=== PATIENT | female | born 1970 | race Caucasian/White ===

== ENCOUNTER → 2018-05-02 07:30 | Outpatient (CLI) | payer MEDICARE, BC, SELFPAY ==
--- NOTE | 2018-05-02 07:36 | NM_ITS ---
History and Indications: Hypertension, hyperlipidemia, family history, chest pain, shortness of breath, palpitations and fatigue Procedure: Patient received a 0.4 mg of Lexiscan, resting heart rate was 78 bpm resting blood pressure 110/54, with Lexiscan maximum heart rate achieved was 105 bpm just less than 85% of the maximum predicted heart rate and a blood pressure was 101/40. With Lexiscan patient denied any complained of chest pain, complained of malaise and shortness of breath Electrocardiogram: Resting electrocardiogram showed sinus rhythm, with Lexiscan millimeters ST segment depression noted from the baseline EKG. The EKG portion of the Lexiscan Myoview is positive for ischemia. Cardiac stress and resting SPECT images: Cardiac stress and rest SPECT images were obtained using technetium 99 Myoview 30.7 mCi at stress and 10.4 mCi at stress. Gated SPECT further analysis of segmental wall motion and calculation of the ejection fraction also done. Cardiac stress and rest SPECT images show uniform myocardial activity without segmental perfusion abnormality, computer derived ejection fraction is 64% with no regional wall motion abnormality, right ventricle is normal size and contractility. Conclusion: 1. The EKG portion of the Lexiscan Myoview is positive for ischemia. 2. No scintigraphic evidence of reversible ischemia seen, computer derived ejection fraction is 64% with no regional wall motion abnormality, right ventricle is normal size and contractility.
--- NOTE | 2018-05-02 09:45 | HMH.ITSHM ---
amlodipine omeprazole fluoxetine atorvastatin hydrochloroth tecfide vit d3 topiramate oxycod
== END ==
PROVIDERS: Family Provider Family Medicine; PCP Family Medicine; Visit Provider Family Medicine
DX: I20.8 Other forms of angina pectoris (principal); G35 Multiple sclerosis; G89.4 Chronic pain syndrome
CPT/HCPCS: 78452; 93017; A9502; J2785

== ENCOUNTER → 2018-11-06 15:56 | Outpatient (CLI) | payer MEDICARE, BC, SELFPAY ==
[2018-11-06 16:30] LABS: Basophils # 0.1 K/mm3 (0-0.2); Basophils % 0.8 % (0.1-2.0); Eosinophils # 0.1 K/mm3 (0.0-0.4); Eosinophils % 1.5 % (0.1-12.0); Hematocrit 42.1 % (37.0-47.0); Hemoglobin 14.3 g/dL (12.2-16.2); Lymphocytes # 1.7 K/mm3 (0.7-4.5); Lymphocytes % 26.7 % (10-50); Mean Corpuscular HGB Conc 33.9 g/dL (31.8-35.4); Mean Corpuscular Hemoglobin 30.9 pg (27.0-31.2); Mean Corpuscular Volume 91.3 fl (81-99); Mean Platelet Volume 7.4 fl (7.4-10.4); Monocytes # 0.3 K/mm3 (0.1-1.0); Neutrophils # 4.2 K/mm3 (1.8-7.8); Platelet Count 418 K/mm3 (142-424); Red Blood Count 4.61 M/mm3 (4.20-5.40); Red Cell Distribution Width 13.6 % (11.5-17.5); White Blood Count 6.3 K/mm3 (4.8-10.8)
[2018-11-06 19:11] LABS: Alanine Aminotransferase 24 U/L (12-78); Albumin Level 3.8 gm/dL (3.4-5.0); Alkaline Phosphatase 82 U/L (46-116); Aspartate Amino Transferase 17 U/L (15-37); Bilirubin,Direct 0.1 mg/dL (0.0-0.2); Bilirubin,Indirect 0.3 mg/dL (0.0-0.9); Bilirubin,Total 0.4 mg/dL (0.2-1.0); Total Protein,Serum 7.8 gm/dL (6.4-8.2)
== END ==
PROVIDERS: Visit Provider Physician Assistant Medical
DX: R53.83 Other fatigue (principal); G35 Multiple sclerosis
CPT/HCPCS: 36415; 80076; 85025

== ENCOUNTER 2018-12-23 14:07 | Outpatient (CLI) | payer MEDICARE, BC, SELFPAY ==
[2018-12-23 14:49] VITALS: BP 151/83; PULSE 72; RESP 20; TEMP 36.8; O2SAT 96
== END 2018-12-23 15:45 | disposition home or self-care (01) ==
LOC: INF 14:07
PROVIDERS: Visit Provider Family Medicine
DX: G35 Multiple sclerosis (principal)
CPT/HCPCS: 96365

== ENCOUNTER 2018-12-24 14:03 | Outpatient (CLI) | payer MEDICARE, BC, SELFPAY ==
[2018-12-24 14:38] VITALS: BP 141/81; PULSE 77; RESP 20; TEMP 36.8; O2SAT 96
[2018-12-24 15:15] VITALS: BP 118/73; PULSE 70; RESP 20
== END 2018-12-24 15:30 | disposition home or self-care (01) ==
LOC: INF 14:03
PROVIDERS: Visit Provider Family Medicine
DX: G35 Multiple sclerosis (principal)
CPT/HCPCS: 96365

== ENCOUNTER 2018-12-25 13:50 | Outpatient (CLI) | payer MEDICARE, BC, SELFPAY ==
[2018-12-25 14:10] VITALS: BP 130/75; PULSE 78; RESP 18; O2SAT 97
[2018-12-25 15:08] VITALS: BP 128/67; PULSE 74; RESP 20; O2SAT 94
== END 2018-12-25 15:08 | disposition home or self-care (01) ==
LOC: INF 13:58
PROVIDERS: Visit Provider Family Medicine
DX: G35 Multiple sclerosis (principal)
CPT/HCPCS: 96365

== ENCOUNTER 2018-12-26 14:11 | Outpatient (CLI) | payer MEDICARE, BC, SELFPAY ==
[2018-12-26 14:31] VITALS: BP 111/67; PULSE 71; RESP 18; O2SAT 100
[2018-12-26 15:22] VITALS: BP 112/63; PULSE 73; RESP 18; O2SAT 93
== END 2018-12-26 15:22 | disposition home or self-care (01) ==
LOC: INF 14:11
PROVIDERS: Visit Provider Family Medicine
DX: G35 Multiple sclerosis (principal)
CPT/HCPCS: 96365

== ENCOUNTER → 2018-12-27 13:16 | Outpatient (CLI) | payer MEDICARE, BC, SELFPAY ==
[2018-12-27 13:42] VITALS: BP 140/78; PULSE 89; RESP 16; TEMP 37; O2SAT 98; BMI 36.6
[2018-12-27 15:33] VITALS: BP 137/55; PULSE 76; RESP 16; TEMP 36.7; O2SAT 98
== END ==
PROVIDERS: PCP Family Medicine; Visit Provider Family Medicine
DX: G35 Multiple sclerosis (principal)
CPT/HCPCS: 96365

== ENCOUNTER → 2019-08-06 09:43 | Outpatient (CLI) | payer MEDICARE, BC, SELFPAY ==
--- NOTE | 2019-08-06 09:48 | CT_ITS ---
PROCEDURE: CT ABDOMEN PELVIS W CON CLINICAL HISTORY: RT SIDED ABD PAIN,MESENTERIC PANNICULITIS,STEATOHEPATITIS COMPARISON: ABDPELW/O CT ABD PELVIS W/O CONTRAST from 08/13/2012 CT ABDOMEN PELVIS W CON from 07/26/2019 TECHNIQUE: Axial images obtained with sagittal and coronal reformats. All CT scans at the facility use one or more dose reduction, viz: automated exposure control, ma/kV adjustment per patient size (including targeted exams where dose is matched to indication, i.e. head), or iterative reconstruction technique. FINDINGS: Lower lung ursh are clear. There is a clip from cholecystectomy. Liver, pancreas, spleen, and adrenal glands are normal. Left kidney is normal. Right kidney shows a punctate 2 millimeter stone in the mid right kidney without hydronephrosis. There is no hydroureter or ureteral stone. There are some aortic calcified plaques without dilatation. There are still some mesenteric hazy densities however these associated lymph nodes are smaller. GI track is otherwise unremarkable. Appendix is not visualized. Urinary bladder is normal. There is no acute osseous process. IMPRESSION: Nonobstructing right nephrolithiasis is stable. Cholecystectomy and hysterectomy. Mesenteric panniculitis however the lymph nodes are smaller. Dictated by: Rajeev Talley 08/06/2019 11:01 Electronically signed by Rajeev Talley in [facility] 08/06/2019 11:01
== END ==
PROVIDERS: PCP Family Medicine; Visit Provider Family Medicine
DX: K65.4 Sclerosing mesenteritis (principal); K75.81 Nonalcoholic steatohepatitis (NASH); R10.9 Unspecified abdominal pain
CPT/HCPCS: 74177; Q9967

== ENCOUNTER 2020-06-15 17:25 | Emergency (ER) | payer MEDICARE, BC, SELFPAY ==
[2020-06-15 17:35] VITALS: BP 167/104; PULSE 101; RESP 18; TEMP 36.7; O2SAT 98; BMI 38.6
--- NOTE | 2020-06-15 17:40 | CT_ITS ---
PROCEDURE: CT ABDOMEN PELVIS W CON CLINICAL INDICATION: RLQ, LLQ pain Left lower quadrant pain, COMPARISON: CT CT ABDOMEN PELVIS W CON from 08/06/2019 TECHNIQUE: IV Contrast: 75ML Isovue 370 Oral Contrast None Axial images obtained with sagittal and coronal reformats. All CT scans at the facility use one or more dose reduction, viz: automated exposure control, ma/kV adjustment per patient size (including targeted exams where dose is matched to indication, i.e. head), or iterative reconstruction technique. FINDINGS: LOWER THORAX: There is patchy infiltrate in the right lung base medially. Small hiatal hernia noted ABDOMEN & PELVIS: There has been a prior cholecystectomy. There is intra and extrahepatic biliary ductal dilatation slightly more prominent than when compared to the previous exam. The common bile duct measures up to 17 mm superiorly previously measuring 12 mm. No obvious common duct stones evident. The spleen, adrenal glands, and pancreas have an unremarkable appearance. There is a small hiatal hernia. Once again there is noted stranding of the mesenteric fat with scattered small mesenteric lymph nodes similar to the previous exam There is mild prominence of the renal pelvicaliceal system on both sides left greater than right with mild enhancement of the uro epithelium bilaterally slightly more apparent on the right. Nonobstructing 3 mm stone is present in the mid polar region of the right kidney. There is stranding of the Chiqui ureteral fat on both sides. These findings raises suspicion of urinary tract infection. There is a small umbilical hernia which contains fat. There are post hysterectomy changes. Prior appendectomy. No pelvic mass or abnormal fluid collection in the pelvis. No acute bony findings IMPRESSION: 1. Mild prominence of the renal pelvicaliceal system and ureters bilaterally with enhancement of the uro epithelium and stranding of the perinephric and periureteral fat consistent with urinary tract infection. Nonobstructing right renal stone is noted. There is mild left-sided hydronephrosis. UPJ obstruction is considered. 2. Slight increase in degree of intra and extrahepatic bile duct dilatation. Consider MRCP for further evaluation. 3. Stranding of the mesenteric fat with scattered small nodes suggesting chronic mesenteric adenitis/panniculitis 4. Patchy infiltrate in the right lung base Dictated by: Wiley Nelson MD 06/16/2020 06:47 Wiley Nelson MD in [facility] 06/16/2020 06:47
[2020-06-15 17:43] LABS: Microscopic, Urine URINE MICROSCOPIC (MICROSCOPIC)
[2020-06-15 17:46] LABS: Appearance,Urine CLOUDY (Clear); Bilirubin,Urine Negative (Negative); Blood, Urine TRACE-L (Negative); Color,Urine YELLOW (Yellow); Glucose,Urine (UA) TRACE (Negative); Ketones,Urine Negative (Negative); Leukocyte Esterase,Urine 1+ (Negative); Nitrate,Urine Negative (Negative); PH,Urine 7.5 (5.0-8.5); Protein,Urine 3+ (Negative); Specific Gravity, Urine 1.025 (1.005-1.030); Urobilinogen,Urine 0.2 EU/dl (0.2)
--- NOTE | 2020-06-15 17:47 | HMH.EDABDPAI ---
ED Disposition Clinical Impression: Mesenteric adenitis UTI (urinary tract infection) Qualifiers: Urinary tract infection type: acute cystitis Hematuria presence: without hematuria Qualified Code(s): N30.00 - Acute cystitis without hematuria Disposition: Home, Self-Care Condition on Discharge: Good Instructions: DI for Urinary Tract Infection (UTI) Prescriptions: cephALEXin [Keflex 500mg Cap] 500 mg PO BID #14 cap Prescription Printed Referrals: Cachorro Jennings MD [Primary Care Provider] - - Critical Care Critical Care Time: No Attestation: On 06/15/20, the high probability of a clinically significant, sudden or life threatening deterioration of the following system(s) required my full and direct attention, intervention and personal management. The time I documented below is in addition to time spent performing reported procedures but includes the following listed in this critical care notation. Medical Decision Making - Medical Records Medical records reviewed: Yes: I reviewed the patient's medical records. - Jose Inquiry Pt receiving controlled substance: Yes Jose was queried for this patient: No Reason not queried -: Emergent pt cond-no time Risks and benefits of using a controlled substance: were discussed with pt by me Vital Signs: 06/15/20 17:35 06/15/20 17:54 Temperature 98.1 F Temperature Source Oral Pulse Rate [Right Brachial] 101 H 85 Respiratory Rate 18 Blood Pressure [Right Arm] 167/104 H 135/86 Blood Pressure Mean [Right Arm] 125 102 Blood Pressure Source [Right Arm] Automatic Cuff Automatic Cuff Blood Pressure Position [Right Arm] Sitting Sitting 02 Sat by Pulse Oximetry 98 96 Oxygen Delivery Method Room Air Room Air - Lab Data Lab Results 06/15/20 17:32: Urine Color Yellow, Urine Appearance Cloudy, Urine pH 7.5, Ur Specific [place] 1.025, Urine Protein 3+, Urine Glucose (UA) Trace, Urine Ketones Negative, Urine Blood Trace-l, Urine Nitrate Negative, Urine Bilirubin Negative, Urine Urobilinogen 0.2, Ur Leukocyte Esterase 1+ A, Urine RBC 3-5, Urine WBC 20-50, Ur Squamous Epith Cells 3-5, Urine Bacteria 2+ 06/15/20 17:32: Urine HCG, Qual Negative 06/15/20 17:47: WBC 9.5, RBC 4.41, Hgb 13.4, Hct 40.7, MCV 92.2, MCH 30.4, MCHC 33.0, RDW 13.8, Plt Count 441 H, MPV 7.7, Neut % (Auto) 78.6, Lymph % (Auto) 14.8, [place] % (Auto) 5.0, Eos % (Auto) 0.9, Baso % (Auto) 0.7, Neut # (Auto) 7.5, Lymph # (Auto) 1.4, [place] # (Auto) 0.5, Eos # (Auto) 0.1, Baso # (Auto) 0.1 06/15/20 17:47: Sodium 134 L, Potassium 3.3 L, Chloride 97 L, Carbon Dioxide 25, Anion Gap 15.3 H, BUN 11, Creatinine 0.90, Estimated Creat Clear 133, Estimated GFR 66, Est GFR ( Amer) 80, Glucose 160 H, Calcium 9.7, Total Bilirubin 0.5, AST 38 H, ALT 48, Alkaline Phosphatase 151 H, Total Protein 8.4 H, Albumin 4.6, Globulin 3.8 H, Albumin/Globulin Ratio 1.2, Lipase 25 Result diagrams: 06/15/20 17:47 06/15/20 17:47 Orders (Tests/Meds): ED MEDICATIONS Generic Name Dose Route Start Last Admin Trade Name Freq PRN Reason Stop Dose Admin Sodium Chloride 1,000 mls @ 999 mls/hr 06/15/20 17:45 06/15/20 17:49 Sod Chlor 0.9% 1000ml Bag IV 06/15/20 18:45 999 mls/hr .Q1H1M KAYLIE Administration Discontinued Medications Generic Name Dose Route Start Last Admin Trade Name Freq PRN Reason Stop Dose Admin Diphenhydramine HCl 25 mg 06/15/20 17:40 06/15/20 17:49 Diphenhydramine 50mg/Ml Vial IV 06/15/20 17:41 25 mg ONCE ONE Administration Iopamidol 75 ml 06/15/20 18:45 06/15/20 18:47 Iopamidol-370 (76%);100ml Bottle IV 06/15/20 18:46 75 ml ONCE ONE Administration Morphine Sulfate 4 mg 06/15/20 17:40 06/15/20 17:49 Morphine 4mg/Ml Syringe IV 06/15/20 17:41 4 mg ONCE ONE Administration Ondansetron HCl 4 mg 06/15/20 17:40 06/15/20 17:49 Ondansetron 4mg/2ml Vial IV 06/15/20 17:41 4 mg ONCE ONE Administration Sodium Chloride 10 ml 06/15/20 18:45 06/15/20 18:47 Sodium C
[2020-06-15 17:49] LABS: Urine Pregnancy, HCG Qual. Negative (Negative)
[2020-06-15 17:54] VITALS: BP 135/86; PULSE 85; O2SAT 96
[2020-06-15 17:58] LABS: Basophils # 0.1 K/mm3 (0-0.2); Basophils % 0.7 % (0.1-2.0); Eosinophils # 0.1 K/mm3 (0.0-0.4); Eosinophils % 0.9 % (0.1-12.0); Hematocrit 40.7 % (37.0-47.0); Hemoglobin 13.4 g/dL (12.2-16.2); Lymphocytes # 1.4 K/mm3 (0.7-4.5); Lymphocytes % 14.8 % (10-50); Mean Corpuscular Hemoglobin 30.4 pg (27.0-31.2); Mean Corpuscular Volume 92.2 fl (81-99); Mean Platelet Volume 7.7 fl (7.4-10.4); Monocytes # 0.5 K/mm3 (0.1-1.0); Neutrophils # 7.5 K/mm3 (1.8-7.8); Neutrophils % 78.6 % (37.0-80.0); Platelet Count 441 K/mm3 (142-424); Red Blood Count 4.41 M/mm3 (4.20-5.40); Red Cell Distribution Width 13.8 % (11.5-17.5); White Blood Count 9.5 K/mm3 (4.8-10.8)
[2020-06-15 18:00] LABS: Chloride 97 mmol/L (98-107); Potassium 3.3 mmoL/L (3.5-5.1); Sodium 134 mmol/L (136-145)
[2020-06-15 18:02] LABS: Alanine Aminotransferase 48 U/L (12-78); Aspartate Amino Transferase 38 U/L (14-36); Blood Urea Nitrogen 11 mg/dl (7-17); Creatinine Clearance Estimated 133 mL/min (50-200); Estimated Glomerular Filt Rate 66 ml/min (>60); GFR (African American) 80 ML/MIN (>60)
[2020-06-15 18:03] LABS: Albumin Level 4.6 g/dl (3.5-5.0); Albumin/Globulin Ratio 1.2 (1.1-1.8); Alkaline Phosphatase 151 U/L (38-126); Anion Gap 15.3 mEq/L (5-15); Bilirubin,Total 0.5 mg/dl (0.2-1.3); Calcium 9.7 mg/dl (8.4-10.2); Carbon Dioxide 25 mmol/L (22.0-30.0); Globulin 3.8 g/dL (1.3-3.2); Glucose 160 mg/dl (74-100); Lipase 25 U/L (23-300); Total Protein,Serum 8.4 g/dl (6.3-8.2)
--- NOTE | 2020-06-15 18:23 | PC.NURSE ---
PATIENT GONE TO CT AT THIS TIME
[2020-06-15 18:37] LABS: Bacteria,Urine 2+ /lpf; WBC,Urine 20-50 #/hpf (0-3)
--- NOTE | 2020-06-15 19:16 | PC.NURSE ---
received report from day nurse at this time.
[2020-06-15 20:35] VITALS: BP 137/84; PULSE 76; RESP 14; TEMP 36.7; O2SAT 98
== END 2020-06-15 20:37 | disposition home or self-care (01) ==
PROVIDERS: Emergency Provider Emergency Medicine; PCP Family Medicine
DX: I88.0 Nonspecific mesenteric lymphadenitis (principal); N30.00 Acute cystitis without hematuria; B96.20 Unspecified Escherichia coli [E. coli] as the cause of diseases classified elsewhere; G35 Multiple sclerosis
CPT/HCPCS: 74177; 80053; 81001; 81025; 83690; 85025; 87086; 87088; 87186; 96365; 96375; 96376; 99283; J2405; Q9967

== ENCOUNTER → 2021-09-10 11:00 | Outpatient (CLI) | payer MEDICARE, BC, SELFPAY | PROVIDERS: Visit Provider Nurse Practitioner | DX: U07.1 COVID-19 (principal) | CPT/HCPCS: C9803; U0003; U0005 ==

== ENCOUNTER → 2021-11-29 15:49 | Outpatient (CLI) | payer MEDICARE, BC, SELFPAY ==
--- NOTE | 2021-11-29 15:52 | MM_ITS ---
PROCEDURE INFORMATION: Exam: MG Bilateral Screening 3D Mammography Exam date and time: 11/29/2021 3:55 PM Age: 51 years old Clinical indication: Screening examination TECHNIQUE: Imaging protocol: Bilateral Screening tomosynthesis and 2D mammography including computer-aided detection (CAD) when performed. COMPARISON: 1. MG DMSB DIG MAMM-SCREEN PRIETO W/CAD 07/08/2017 4:05 PM 2. MG DMSB DIG MAMM-SCREEN PRIETO 06/26/2016 10:23 AM FINDINGS: MAMMOGRAPHY: Breast composition: The breast tissue is composed of scattered areas of fibroglandular density. Mass: 0.8 cm mass in the middle third of the left outer quadrant seen on craniocaudal image 1373, frame 39 Architectural distortion: None. Calcifications: No suspicious calcifications. Asymmetric density: None. Skin thickening: None. Axillary adenopathy: None. IMPRESSION: Patient to be recalled for left breast ultrasound for further evaluation of a left breast mass. ASSESSMENT: BI-RADS Category 0: Incomplete- Need Additional Imaging Evaluation and/or Prior Mammograms for Comparison
== END ==
PROVIDERS: Visit Provider Obstetrics & Gynecology Gynecology
DX: Z12.31 Encounter for screening mammogram for malignant neoplasm of breast (principal)
CPT/HCPCS: 77063; 77067

== ENCOUNTER → 2021-12-13 13:27 | Outpatient (CLI) | payer MEDICARE, BC, SELFPAY ==
--- NOTE | 2021-12-13 13:32 | US_ITS ---
PROCEDURE INFORMATION: Exam: US Left Breast, Complete Exam date and time: 12/13/2021 1:41 PM Age: 51 years old Clinical indication: Recall on the basis of screening mammogram 11/29/2021 for sonographic evaluation of 0.8 cm mass in the middle 3rd of the left outer quadrant. TECHNIQUE: Imaging protocol: Complete ultrasound of all four quadrants of the Left breast and the retroareolar regions, including ultrasound of the axilla when performed. COMPARISON: MG MM DIG SCREENING MAMM BI W/CAD 11/29/2021 3:55 PM FINDINGS: Breast: Left sonography, all 4 quadrants, retroareolar and axilla demonstrate, at 2 o'clock 8 cm from the nipple, mildly lobulated hypoechoic mass, measuring 0.8 x 0.5 x 0.7 cm, more could be a complex cyst or solid, and corresponds to the mammographic nodule. No other cystic or solid masses demonstrated. Sonographically unremarkable left axillary lymph node. IMPRESSION: Suggest ultrasound-guided biopsy of 0.8 cm mass in the left breast at 2 o'clock, checking for correlation of ultrasound placed clip with mammographic nodule. ASSESSMENT: BI-RADS Category 4: Suspicious
== END ==
PROVIDERS: Visit Provider Obstetrics & Gynecology Gynecology
DX: R92.8 Other abnormal and inconclusive findings on diagnostic imaging of breast (principal)
CPT/HCPCS: 76641

== ENCOUNTER → 2021-12-19 09:42 | Outpatient (CLI) | payer MEDICARE, BC, SELFPAY ==
--- NOTE | 2021-12-19 09:54 | US_ITS ---
FINAL REPORT CLINICAL HISTORY: ABN MAMM; left breast nodule, 8 mm, at 2:00; mammotome FINDINGS: ULTRASOUND-GUIDED LEFT BREAST CORE BIOPSY TECHNIQUE: Limited images were obtained to localize region of interest. The left was prepped in a routine sterile fashion and locally anesthetized with 1% lidocaine. Standard written informed consent was obtained. An 11-gauge vacuum assisted hand-held device was utilized. The needle was positioned posterior to the lesion in the upper outer quadrant at 2:00 measuring approximately 7 mm.. Multiple vacuum assisted core samples were obtained. The lesion was noted to be significantly smaller following biopsy. A biopsy marker clip was deployed in satisfactory position. Postbiopsy mammogram showed postbiopsy changes with clip in satisfactory position. Procedure was well tolerated . CONCLUSION: 1. Technically successful ultrasound guided core vacuum assisted biopsy of left breast lesion as above. 2. Biopsy marker clip deployed Authenticated by Esperanza Ellington MD on 12/20/2021 08:50:06 PM [facility]
--- NOTE | 2021-12-19 09:57 | MM_ITS ---
FINAL REPORT CLINICAL HISTORY: lt clip placement FINDINGS: MAMMOGRAM LEFT TECHNIQUE: Standard digital 2-D views COMPARISON: None DENSITY: There are scattered areas of fibroglandular density FINDINGS: Post biopsy marker clip is noted to be in satisfactory position in the left upper outer quadrant. Postbiopsy changes are noted. IMPRESSION: Biopsy marker clip in good position RECOMMENDATION: Pending histopathology evaluation. If histopathology results are benign, recommend short-term mammographic and sonographic follow-up of the left breast in 6 months as part of routine postbiopsy surveillance Authenticated by Esperanza Ellington MD on 12/25/2021 10:22:14 PM [facility]
== END ==
PROVIDERS: Visit Provider Obstetrics & Gynecology Gynecology
DX: R92.8 Other abnormal and inconclusive findings on diagnostic imaging of breast (principal)
CPT/HCPCS: 19083; 77065; 88305; C2618

== ENCOUNTER 2021-12-21 17:06 | Emergency (ER) | payer MEDICARE, BC, SELFPAY ==
[2021-12-21 17:09] VITALS: BP 130/85; PULSE 70; RESP 16; TEMP 36.6; O2SAT 97; BMI 36.8
--- NOTE | 2021-12-21 18:31 | HMH.EDSKAF ---
ED Disposition Clinical Impression: Contact dermatitis Qualifiers: Contact dermatitis type: irritant Contact dermatitis trigger: other chemical product Qualified Code(s): L24.5 - Irritant contact dermatitis due to other chemical products Disposition: Home, Self-Care Condition on Discharge: Good Instructions: DI for Contact Dermatitis Prescriptions: Hydrocortisone [Hydrocortisone 1% Cream 30gm Tube] 1 applic TP TID #30 gm Transmission Status: Pending to [facility] Referrals: Cachorro Jennings MD [Primary Care Provider] - - Critical Care Critical Care Time: No Attestation: On 12/21/21, the high probability of a clinically significant, sudden or life threatening deterioration of the following system(s) required my full and direct attention, intervention and personal management. The time I documented below is in addition to time spent performing reported procedures but includes the following listed in this critical care notation. Medical Decision Making - Medical Records Medical records reviewed: Yes: I reviewed the patient's medical records. - Jose Inquiry Pt receiving controlled substance: No Vital Signs: 12/21/21 17:09 Temperature 97.8 F Temperature Source Oral Pulse Rate [Right Radial] 70 Respiratory Rate 16 Blood Pressure [Right Arm] 130/85 Blood Pressure Mean [Right Arm] 100 Blood Pressure Source [Right Arm] Automatic Cuff Blood Pressure Position [Right Arm] Sitting 02 Sat by Pulse Oximetry 97 Oxygen Delivery Method Room Air Medical Decision Narrative: 51-year-old female presented to the emergency department with a lesion on her left breast. Patient had recent biopsy and had tape bandages over the wound. I do believe the patient's symptoms are consistent with an abrasion from tape removal as well as allergic reaction. There is no evidence of cellulitis or other systemic infection. No evidence anaphylaxis. Patient be placed on topical steroid. Needs to follow-up with PCP in 48 hours. Given strict return precautions. Verbalized understanding. Skin/Abscess/FB HPI - General Chief complaint: Skin/Abscess/Foreign Body Stated complaint: L breast biopsy,irritation around bandage Time Seen by Provider: 12/21/21 17:15 Mode of Arrival: Ambulatory Limitations: No Limitations Description of Symptoms (Recalled from ER Triage Doc. by RN): Pt reports possibly allergic reaction from dressing she had on her L breast from a biopsy that she had done of saturday of this week. Pt reports began having itching/buring from area on top of her breast that is red and irritated yesterday. - History of Present Illness HPI narrative: Is a 51-year-old female presented to the emergency department with a rash on the left breast. The patient had a biopsy done 2 days ago without any significant complications. She had some tape placed on her breast. She removed it yesterday and started noticing some irritation underneath where the tape was. Small red area that has been burning and itching. Had some clear drainage. There is been no discharge or bleeding from the nipple. No other issues or injuries. She states that they used a silk tape to place over the area. Patient is not having any fevers or chills. No headache or change in vision. No focal weakness. No chest pain or shortness of breath. No Abdominal pain or vomiting. - Related Data Home Medications Medication Instructions Recorded Confirmed amlodipine 10 mg-benazepril 40 mg 1 cap PO DAILY cap 08/14/21 08/14/21 capsule atorvastatin 10 mg tablet 10 mg PO DAILY tab 08/14/21 08/14/21 omeprazole 20 mg capsule,delayed 20 mg PO DAILY cap 08/14/21 08/14/21 release oxycodone-acetaminophen 10 mg-325 1 tab PO ONCE PRN tab 08/14/21 08/14/21 mg tablet Previous Rx's Medication Instructions Recorded alprazolam 0.25 mg tablet 0.25 mg PO BID PRN #30 tab 11/29/21 buspirone 10 mg tablet 10 mg PO BID #60 tab 11/29/21 fluoxetine 40 mg capsule
[2021-12-21 19:26] VITALS: BP 134/77; PULSE 81; RESP 18; TEMP 36.9; O2SAT 99
== END 2021-12-21 19:28 | disposition home or self-care (01) ==
PROVIDERS: Emergency Provider Emergency Medicine; PCP Family Medicine
DX: L24.5 Irritant contact dermatitis due to other chemical products (principal); R21 Rash and other nonspecific skin eruption; N64.9 Disorder of breast, unspecified; Z82.49 Family history of ischemic heart disease and other diseases of the circulatory system; Z80.9 Family history of malignant neoplasm, unspecified; Z83.3 Family history of diabetes mellitus
CPT/HCPCS: 99283

== ENCOUNTER 2022-07-14 12:15 | Emergency (ER) | payer MEDICARE, BC, SELFPAY ==
--- NOTE | 2022-07-14 14:41 | EXP.UTC ---
Discharge Plan Disposition Patient Disposition: Home, Self-Care Condition: Good Prescriptions Prescriptions: New promethazine-DM 6.25-15 mg/5 mL Syrup 5 ml PO Q6H PRN (Reason: Cough) Qty: 240 0RF azithromycin [Zithromax] 250 mg tablet 250 mg PO UD DOSE PK Qty: 6 0RF Rx Instructions: Take two (2) tablets today, then one (1) tablet days #2 thru #5 methylprednisolone 4 mg Tablets,Dose Pack 4 mg PO DIRECTED Qty: 21 0RF guaifenesin [Mucinex] 600 mg tablet extended release 12hr 600 - 1,200 mg PO BIDP PRN (Reason: Congestion) Qty: 30 0RF No Action alprazolam [Xanax] 0.25 mg tablet 0.25 mg PO BID PRN (Reason: anxiety) Qty: 30 0RF buspirone 10 mg tablet 10 mg PO BID Qty: 60 1RF fluoxetine [Prozac] 40 mg capsule 80 mg PO DAILY Qty: 60 1RF hydroxyzine pamoate [Vistaril] 25 mg capsule 25 mg PO QHS PRN (Reason: for sleep) Qty: 30 1RF quetiapine [Seroquel] 50 mg tablet 50 mg PO QHS Qty: 30 1RF venlafaxine [Effexor XR] 75 mg capsule,extended release 24hr 75 mg PO DAILY Qty: 30 1RF oxycodone-acetaminophen 10-325 mg tablet 1 tab PO ONCE PRN amlodipine-benazepril 10-40 mg capsule 1 cap PO DAILY omeprazole 20 mg capsule,delayed release(DR/EC) 20 mg PO DAILY atorvastatin 10 mg tablet 10 mg PO DAILY hydrocortisone 28.4 GM cream 1 applic TP TID Qty: 30 0RF Referrals Follow up/Referrals: Cachorro Jennings MD [Primary Care Provider] - See instructions Activity Restrictions/Add. Instructions Additional Instructions/Restrictions: Drink plenty of fluids. Take tylenol or ibuprofen for pain or fever. Take the medications as directed. Follow up with your regular doctor. GO TO THE ER FOR ANY WORSENING SYMPTOMS Don't start the oral steroids until tomorrow, since you had the shot here today. Clinical Impressions Clinical Impression: Sinusitis Instructions Patient Instructions: Sinusitis Discharge ED Provider: Mandeep Betancourt [facility] [place] HPI General Stated complaint: Cough,Congestion Time Seen by Provider: 07/14/22 14:41 History of Present Illness Provider Complaint: She has had sinus congestion, fever, sore throat and she has felt bad for the past 5 days. Related Data Home Medications Medication Instructions Recorded Confirmed amlodipine 10 mg-benazepril 40 mg 1 cap PO DAILY 08/14/21 07/03/22 capsule atorvastatin 10 mg tablet 10 mg PO DAILY 08/14/21 07/03/22 omeprazole 20 mg capsule,delayed 20 mg PO DAILY 08/14/21 07/03/22 release oxycodone-acetaminophen 10 mg-325 1 tab PO ONCE PRN 08/14/21 07/03/22 mg tablet Previous Rx's Medication Instructions Recorded hydrocortisone 1 % topical cream 1 applic topical TID #30 grams 12/21/21 alprazolam 0.25 mg tablet (Xanax) 0.25 mg PO BID PRN anxiety #30 tabs 04/25/22 buspirone 10 mg tablet 10 mg PO BID #60 tabs 06/21/22 fluoxetine 40 mg capsule (Prozac) 80 mg PO DAILY #60 caps 06/21/22 hydroxyzine pamoate 25 mg capsule 25 mg PO QHS PRN for sleep #30 caps 06/21/22 (Vistaril) quetiapine 50 mg tablet (Seroquel) 50 mg PO QHS #30 tabs 06/21/22 venlafaxine 75 mg capsule,extended 75 mg PO DAILY #30 caps 06/21/22 release 24 hr (Effexor XR) azithromycin 250 mg tablet 250 mg PO UD DOSE PK #6 tabs 07/14/22 (Zithromax) guaifenesin 600 mg tablet, 600 - 1,200 mg PO BIDP PRN 07/14/22 extended release 12 hr (Mucinex) Congestion #30 tabs methylprednisolone 4 mg tablets in 4 mg PO DIRECTED #21 tabs 07/14/22 a dose pack promethazine-DM 6.25 mg-15 mg/5 mL 5 ml PO Q6H PRN Cough #240 mL 07/14/22 oral syrup Allergies Allergy/AdvReac Type Severity Reaction Status Date / Time No Known Allergies Allergy Verified 07/14/22 15:06 [facility] Disclaimer: The information contained in this section may have been updated after the patient was seen, as this information can be updated by other users. Medical History G
[2022-07-14 14:46] VITALS: BP 125/69; PULSE 83; RESP 16; TEMP 36.7; O2SAT 96; BMI 36.5
[2022-07-14 15:43] VITALS: BP 125/69; PULSE 83; RESP 16; TEMP 36.7
[2022-07-14 15:53] LABS: Adenovirus,PCR Not Detected (NotDetected); Bordetella Pertussis Not Detected (NotDetected); Chlamydophila Pneumoniae, PCR Not Detected (NotDetected); Coronavirus 19, PCR Not Detected (NotDetected); Coronavirus 229E Not Detected (NotDetected); Coronavirus NL63 Not Detected (NotDetected); Coronavirus OC43 Not Detected (NotDetected); Coronovirus HKU1,PCR Not Detected (NotDetected); Human Metapneumovirus Not Detected (NotDetected); Influenza A, PCR Not Detected (NotDetected); Influenza AH1, 2009 Not Detected (NotDetected); Influenza AH1, PCR Not Detected (NotDetected); Influenza AH3,PCR Not Detected (NotDetected); Influenza B, PCR Not Detected (NotDetected); Mycoplasma Pneumoniae, PCR Not Detected (NotDetected); Parainfluenza 1, PCR Not Detected (NotDetected); Parainfluenza 2, PCR Not Detected (NotDetected); Parainfluenza 3, PCR Not Detected (NotDetected); Parainfluenza 4, PCR Not Detected (NotDetected); Respiratory Syncytial Virus Not Detected (NotDetected); Rhinovirus/Enterovirus Not Detected (NotDetected)
== END 2022-07-14 15:48 | disposition home or self-care (01) ==
PROVIDERS: Emergency Provider Nurse Practitioner Family; PCP Family Medicine
DX: J02.9 Acute pharyngitis, unspecified (principal); R50.9 Fever, unspecified; Z20.822 Contact with and (suspected) exposure to COVID-19; G47.00 Insomnia, unspecified; F41.1 Generalized anxiety disorder; Z79.1 Long term (current) use of non-steroidal anti-inflammatories (NSAID); Z79.52 Long term (current) use of systemic steroids; Z79.899 Other long term (current) drug therapy
CPT/HCPCS: 87581; 87632; 87798; 96372; 99213; C9803; G0463; J0696; U0003; U0005

== ENCOUNTER 2022-07-31 11:56 | Emergency (ER) | payer MEDICARE, BC, SELFPAY ==
[2022-07-31 12:50] VITALS: BP 121/84; PULSE 86; RESP 19; TEMP 36.8; O2SAT 97; BMI 38.5
--- NOTE | 2022-07-31 13:11 | EXP.UTC ---
Discharge Plan Disposition Patient Disposition: Home, Self-Care Condition: Good Prescriptions Prescriptions: New doxycycline hyclate 100 mg capsule 100 mg PO BID 7 Days Qty: 14 0RF No Action oxycodone-acetaminophen 10-325 mg tablet 1 tab PO ONCE PRN amlodipine-benazepril 10-40 mg capsule 1 cap PO DAILY omeprazole 20 mg capsule,delayed release(DR/EC) 20 mg PO DAILY atorvastatin 10 mg tablet 10 mg PO DAILY venlafaxine [Effexor XR] 75 mg capsule,extended release 24hr 75 mg PO DAILY Qty: 30 1RF quetiapine [Seroquel] 50 mg tablet 50 mg PO QHS Qty: 30 1RF hydroxyzine pamoate [Vistaril] 25 mg capsule 25 mg PO QHS PRN (Reason: for sleep) Qty: 30 1RF fluoxetine [Prozac] 40 mg capsule 80 mg PO DAILY Qty: 60 1RF buspirone 10 mg tablet 10 mg PO BID Qty: 60 1RF alprazolam [Xanax] 0.25 mg tablet 0.25 mg PO BID PRN (Reason: anxiety) Qty: 30 0RF promethazine-DM 6.25-15 mg/5 mL Syrup 5 ml PO Q6H PRN (Reason: Cough) Qty: 240 0RF azithromycin [Zithromax] 250 mg tablet 250 mg PO UD DOSE PK Qty: 6 0RF Rx Instructions: Take two (2) tablets today, then one (1) tablet days #2 thru #5 methylprednisolone 4 mg Tablets,Dose Pack 4 mg PO DIRECTED Qty: 21 0RF guaifenesin [Mucinex] 600 mg tablet extended release 12hr 600 - 1,200 mg PO BIDP PRN (Reason: Congestion) Qty: 30 0RF hydrocortisone 28.4 GM cream 1 applic TP TID Qty: 30 0RF Referrals Follow up/Referrals: Cachorro Jennings MD [Primary Care Provider] - See instructions Activity Restrictions/Add. Instructions Additional Instructions/Restrictions: *Monitor Temp, Over the counter Motrin or Tylenol as directed/as needed Tylenol every 4 hours and Motrin every 6 hours (as long as your family doctor has told you that you can take it) for fever or pain. and straight to ER if unable to lower temp less than 101.0 after medication given *Warm salt water gargles may help to soothe the throat *Throat Lozenges? *Warm fluids like tea with honey may help to soothe the throat? *Sleep elevated *Humidifier/Vaporizer *Flonase 2 sprays in each nostril daily but be aware that it may take 2-3 days before you notice improvement *Bromfed may cause drowsiness. Know how it effects you (your child) before driving, caring for small child, or sending your child to school. Not other antihistamines/allergy medications while taking bromfed Your throat swab was sent for culture. Those results are typically sent to your primary care. Be sure to follow up in 2-3 days with your family doctor/primary care physician if no improvement so they can review those result and treat if necessary. If you don?t have a primary care doctor, I recommend you get one but in the mean time, you will have to return to a walk in clinic Follow up IMMEDIATELY for new or worsening symptoms or no Noticeable improvement over the next 48-72 hours. 911 for difficulty breathing or swallowing You were tested for today for COVID19 your test result should be back in the next 24-48 hours, you may check your results on the [facility] Portal Clinical Impressions Clinical Impression: Sinusitis Qualifiers: Sinusitis location: unspecified location Chronicity: unspecified Qualified Code(s): J32.9 - Chronic sinusitis, unspecified Instructions Patient Instructions: Sinusitis, DI for Sinusitis [place] ED [place] [facility] [place] [facility] [place] General Stated complaint: Congestion ear pain headache cough Mode of Arrival: Ambulatory Source of Information: Patient Limitations: No Limitations Time Seen by Provider: 07/31/22 13:11 Description of Symptoms (Recalled from Triage Doc. by RN): PATIENT C/O COUGH, HEADACHE AND SINUS PRESSURE X 4 DAYS HEENT Symptoms (Recalled from RN notes): Yes Resp Symptoms (Recalled from RN notes): Yes Skin Symptoms (Recalled from RN notes): No MS Symptoms (Recalled from RN notes): No Functional Status (
[2022-07-31 13:30] VITALS: BP 121/84; PULSE 86; RESP 19; TEMP 36.8; O2SAT 97
== END 2022-07-31 13:34 | disposition home or self-care (01) ==
PROVIDERS: Emergency Provider Nurse Practitioner; PCP Family Medicine
DX: J32.9 Chronic sinusitis, unspecified (principal)
CPT/HCPCS: 99212; C9803; G0463; U0003; U0005

== ENCOUNTER 2022-10-05 13:29 | Emergency (ER) | payer MEDICARE, BC, SELFPAY ==
[2022-10-05 13:35] VITALS: BP 123/80; PULSE 85; RESP 20; TEMP 36.7; O2SAT 96; BMI 36.1
--- NOTE | 2022-10-05 13:46 | EXP.UTC ---
Discharge Plan Disposition Patient Disposition: Home, Self-Care Condition: Good Prescriptions Prescriptions: New azithromycin [Zithromax] 250 mg tablet 250 mg PO UD DOSE PK Qty: 6 0RF Rx Instructions: Take two (2) tablets today, then one (1) tablet days #2 thru #5 ofloxacin 0.3 % drops See Rx Instructions .ROUTE .COMPLEX Qty: 5 0RF Rx Instructions: put 2 drps into the right eye every 2 h x 2 days, then 1 drp 4 times/day days 3-7 benzonatate [benzonatate] 100 mg capsule 100 mg PO TIDP PRN (Reason: Cough) Qty: 30 0RF methylprednisolone 4 mg Tablets,Dose Pack 4 mg PO DIRECTED Qty: 21 0RF No Action oxycodone-acetaminophen 10-325 mg tablet 1 tab PO ONCE PRN (Reason: .) amlodipine-benazepril 10-40 mg capsule 1 cap PO DAILY omeprazole 20 mg capsule,delayed release(DR/EC) 20 mg PO DAILY atorvastatin 10 mg tablet 10 mg PO DAILY alprazolam [Xanax] 0.25 mg tablet 0.25 mg PO BID PRN (Reason: anxiety) Qty: 30 0RF hydroxyzine pamoate [Vistaril] 25 mg capsule 25 mg PO QHS PRN (Reason: for sleep) Qty: 30 1RF hydrocortisone 28.4 GM cream 1 applic TP TID Qty: 30 0RF hydrochlorothiazide 25 mg tablet 25 mg PO DAILY Label Comments: TAKE 1 TABLET BY MOUTH EVERY DAY fluoxetine [Prozac] 40 mg capsule 80 mg PO DAILY venlafaxine [Effexor XR] 75 mg capsule,extended release 24hr 75 mg PO DAILY buspirone 10 mg tablet 10 mg PO BID quetiapine [Seroquel] 50 mg tablet 50 mg PO QHS Referrals Follow up/Referrals: Cachorro Jennings MD [Primary Care Provider] - See instructions Activity Restrictions/Add. Instructions Additional Instructions/Restrictions: Use the eye drops as directed. Follow up with your regular doctor. Drink plenty of fluids. Take tylenol or ibuprofen for pain or fever. Take the medications as directed. Follow up with your regular doctor. GO TO THE ER FOR ANY WORSENING SYMPTOMS Clinical Impressions Clinical Impression: Conjunctivitis of right eye, Sinusitis Instructions Patient Instructions: How to Instill Eye Drops, DI for Sinusitis, DI for Conjunctivitis Discharge ED Provider: Mandeep Betancourt [facility] General Stated complaint: Eye redness w/drainage Mode of Arrival: Ambulatory Source of Information: Patient Limitations: No Limitations Time Seen by Provider: 10/05/22 14:07 Description of Symptoms (Recalled from Triage Doc. by RN): pinkeye in right eye and sinus infection HEENT Symptoms (Recalled from RN notes): Yes Resp Symptoms (Recalled from RN notes): No Skin Symptoms (Recalled from RN notes): No MS Symptoms (Recalled from RN notes): No Functional Status (Recalled from RN notes): n/a History of Present Illness Provider Complaint: She states that since yesterday she has had right eye irritation, eyelid puffiness, and yellowish discharge. She denies any eye injury or foreign body. She has been with her grand children and they currently have pink eye. She also has had sinus congestion, sore throat, and a cough. Related Data Home Medications Medication Instructions Recorded Confirmed amlodipine 10 mg-benazepril 40 mg 1 cap PO DAILY . 08/14/21 10/05/22 capsule atorvastatin 10 mg tablet 10 mg PO DAILY . 08/14/21 10/05/22 omeprazole 20 mg capsule,delayed 20 mg PO DAILY . 08/14/21 10/05/22 release oxycodone-acetaminophen 10 mg-325 1 tab PO ONCE PRN . 08/14/21 10/05/22 mg tablet buspirone 10 mg tablet 10 mg PO BID . 10/05/22 10/05/22 fluoxetine 40 mg capsule (Prozac) 80 mg PO DAILY . 10/05/22 10/05/22 hydrochlorothiazide 25 mg tablet 25 mg PO DAILY . 10/05/22 10/05/22 quetiapine 50 mg tablet (Seroquel) 50 mg PO QHS . 10/05/22 10/05/22 venlafaxine 75 mg capsule,extended 75 mg PO DAILY . 10/05/22 10/05/22 release 24 hr (Effexor XR) Previous Rx's Medication Instructions Recorded hydrocortisone 1 % topical cream 1 applic topical TID #30 grams 12/21/21 julianne
[2022-10-05 14:04] VITALS: BP 123/80; PULSE 85; RESP 20; TEMP 36.7; O2SAT 96
== END 2022-10-05 14:04 | disposition home or self-care (01) ==
PROVIDERS: Emergency Provider Nurse Practitioner Family; PCP Family Medicine
DX: H10.9 Unspecified conjunctivitis (principal); J32.9 Chronic sinusitis, unspecified
CPT/HCPCS: 99212; 99213; G0463

== ENCOUNTER → 2023-06-25 14:59 | Outpatient (CLI) | payer MEDICARE, BC, SELFPAY ==
--- NOTE | 2023-06-25 15:03 | US_ITS ---
FINAL REPORT CLINICAL HISTORY: NODULE COMPARISON: None FINDINGS: THYROID ULTRASOUND: The right lobe of the thyroid gland measures 4.7 x 1.4 x 1.7 cm in size. There are several small 2 to 3 mm in size cystic appearing nodules. Other nodules are identified in the right lobe of the thyroid gland. The left lobe of the thyroid measures 4.8 x 2.1 x 2.1 cm in size. There is a 2.5 x 1.8 x 1.7 solid isoechoic TI-RADS category 4 nodule present. No other focal masses or nodules are seen. The isthmus of the thyroid gland is unremarkable in appearance and measures 2.4 mm in diameter. IMPRESSION: 2.5 cm TI-RADS category 4 nodule in the left lobe of the thyroid gland. According to TI-RADS criteria, this nodule requires biopsy. Reviewed, Interpreted and Dictated by Low Garcia MD Transcribed by Vidhi Giraldo Authenticated and [facility]
== END ==
PROVIDERS: PCP Family Medicine; Visit Provider Family Medicine
DX: E04.1 Nontoxic single thyroid nodule (principal)
CPT/HCPCS: 76536

== ENCOUNTER 2023-12-30 17:06 | Outpatient (CLI) | payer MEDICARE, BC, SELFPAY ==
--- NOTE | 2023-12-30 17:09 | MM_ITS ---
PROCEDURE INFORMATION: Exam: MG Bilateral Screening 3D Mammography Exam date and time: 12/30/2023 4:57 PM Age: 53 years old Clinical indication: Screening examination TECHNIQUE: Imaging protocol: Bilateral Screening tomosynthesis and 2D mammography including computer-aided detection (CAD) when performed. COMPARISON: 1. MG MM CLIP PLACEMENT LT 12/19/2021 10:42 AM 2. MG MM DIG SCREENING MAMM BI W/CAD 11/29/2021 3:55 PM FINDINGS: MAMMOGRAPHY: Breast composition: There are scattered areas of fibroglandular density. Mass: None. Architectural distortion: None. Calcifications: No suspicious calcifications. Asymmetric density: None. Skin thickening: None. Axillary adenopathy: None. IMPRESSION: No mammographic evidence of malignancy. Annual screening is recommended unless otherwise clinically indicated. ASSESSMENT: BI-RADS Category 1: Negative
== END 2023-12-30 23:59 | disposition home or self-care (01) ==
LOC: RAD 17:07
PROVIDERS: PCP Family Medicine; Visit Provider Family Medicine
DX: Z12.31 Encounter for screening mammogram for malignant neoplasm of breast (principal)
CPT/HCPCS: 77063; 77067

== ENCOUNTER 2024-04-01 10:19 | Emergency (ER) | payer MEDICARE, BC, SELFPAY ==
[2024-04-01 10:25] VITALS: BP 123/77; PULSE 108; RESP 20; TEMP 37.6; O2SAT 96; BMI 32.5
--- NOTE | 2024-04-01 10:36 | EXP.UTC ---
Discharge Plan Disposition Patient Disposition: Home, Self-Care Condition: Good Prescriptions Prescriptions: New ondansetron 4 mg tablet,disintegrating 4 mg PO Q8H PRN (Reason: nausea and vomiting) Qty: 10 0RF No Action fluoxetine 40 mg capsule 40 mg PO DAILY venlafaxine 75 mg capsule,extended release 24hr 75 mg PO DAILY atorvastatin 10 mg tablet 10 mg PO DAILY Patient Comments: TAKE 1 TABLET BY MOUTH EVERY DAY oxycodone-acetaminophen 10-325 mg tablet 1 tab PO Q6H buspirone 10 mg tablet 10 mg PO DAILY omeprazole 20 mg capsule,delayed release(DR/EC) 20 mg PO DAILY Patient Comments: TAKE 1 CAPSULE BY MOUTH EVERY DAY hydrochlorothiazide 25 mg tablet 25 mg PO DAILY Patient Comments: TAKE 1 TABLET BY MOUTH EVERY DAY hydroxyzine pamoate 25 mg capsule 25 mg PO DAILY amlodipine-benazepril 10-40 mg capsule 1 cap PO DAILY Patient Comments: TAKE 1 CAPSULE BY MOUTH EVERY DAY Referrals Follow up/Referrals: Cachorro Jennings MD [Primary Care Provider] - See instructions Activity Restrictions/Add. Instructions Additional Instructions/Restrictions: *Monitor Temp, Over the counter Motrin or Tylenol as directed/as needed Tylenol every 4 hours and Motrin every 6 hours (as long as your family doctor has told you that you can take it) for fever or pain. and straight to ER if unable to lower temp less than 101.0 after medication given *Warm salt water gargles may help to soothe the throat *Throat Lozenges? *Warm fluids like tea with honey may help to soothe the throat? *Sleep elevated *Humidifier/Vaporizer Follow up IMMEDIATELY for new or worsening symptoms or no Noticeable improvement over the next 48-72 hours. 911 for difficulty breathing or swallowing You were tested for today for Flu and COVID19 your test result should be back in the next few hours, you may check your results on the [facility] My Health Portal later today and they should be on there Clinical Impressions Clinical Impression: Viral syndrome Instructions Patient Instructions: DI for Viral Syndrome, DI for Fever (Symptom) -- Adult Print Language Print Language: Djib[place]ian Discharge ED Provider: Shannon Marmolejo [facility] [place] HPI General Stated complaint: body aches, chills, headache Mode of Arrival: Ambulatory Source of Information: Patient Limitations: No Limitations Time Seen by Provider: 04/01/24 10:36 Description of Symptoms (Recalled from Triage Doc. by RN): PATIENT C/O BODY ACHES, CHILLS, HEADACHE, COUGH AND NAUSEA THAT STARTED YESTERDAY HEENT Symptoms (Recalled from RN notes): Yes Resp Symptoms (Recalled from RN notes): No Skin Symptoms (Recalled from RN notes): No MS Symptoms (Recalled from RN notes): No Functional Status (Recalled from RN notes): WNL History of Present Illness Provider Complaint: Patient states that she started feeling bad yesterday States that she has been having cough, sore throat, headache, chills and over all not feeling well States that she wasnt exposed to COVID that she knows of but knowns it is going around so today she came in to get checked Related Data Home Medications ?Medication ?Instructions ?Recorded ?Confirmed amlodipine 10 mg-benazepril 40 mg 1 cap PO DAILY 04/01/24 04/01/24 capsule atorvastatin 10 mg tablet 10 mg PO DAILY 04/01/24 04/01/24 buspirone 10 mg tablet 10 mg PO DAILY 04/01/24 04/01/24 fluoxetine 40 mg capsule 40 mg PO DAILY 04/01/24 04/01/24 hydrochlorothiazide 25 mg tablet 25 mg PO DAILY 04/01/24 04/01/24 hydroxyzine pamoate 25 mg capsule 25 mg PO DAILY 04/01/24 04/01/24 omeprazole 20 mg capsule,delayed 20 mg PO DAILY 04/01/24 04/01/24 release oxycodone-acetaminophen 10 mg-325 1 tab PO Q6H 04/01/24 04/01/24 mg tablet venlafaxine 75 mg capsule,extended 75 mg PO DAILY 04/01/24 04/01/24 release 24 hr Previous Rx's ?Medication ?Instructions ?Recorded ondansetron 4 mg disintegrating 4 mg PO Q8H PRN nausea and 04/01/24 tablet vomiting #10 tabs Allergies Allergy/AdvReac Type Severity Reaction Status Date / Time No Known Allergies Allergy Verified 01/11/24 12:22 Worker's Comp Is this a Worker's Comp case?: No PFS PFS Disclaimer: The information contained in this section may have been updated after the patient was seen, as this information can be updated by other users. Medical History Anxiety Depression Generalized anxiety disorder Grief at loss of child Hyperlipidemia Hypertension Insomnia Surgical History History of appendectomy History of cholecystectomy History of hysterectomy Social History Smoking Status: Never smoker alcohol intake: current alcohol intake frequency: a few times a week substance use type: denies use current occupational status: employed and disabled Travel in the last 8 weeks: None household members: family housing: house number of children: 2 ROS Obtained: Yes All systems reviewed & no additional complaints except as documented and Yes Systems reviewed as appropriate & no additional complaints except as documented Constitutional Constitutional: Reports system reviewed and no additional complaints, except as documented, Reports as per HPI, Reports body ache, Reports chills, Reports fever(s) and Reports headache(s) ENT Ears, Nose, Mouth, and Throat: Reports system reviewed and no additional complaints, except as documented, Reports as per HPI, Reports headache(s), Reports nasal congestion and Reports nasal discharge Cardiovascular Cardiovascular: Reports system reviewed and no additional complaints, except as documented and Reports as per HPI Respiratory Respiratory: Reports system reviewed and no additional complaints, except as documented, Reports as per HPI and Reports cough Gastrointestinal Gastrointestingal: Reports system reviewed and no additional complaints, except as documented, as per HPI and nausea Neurologic Neurologic: Reports headache(s) Physical Exam General General appearance: alert and in no apparent distress ENT ENT exam: Present mucous membranes moist Expanded ENT Exam Nose exam: Absent sinus tenderness Throat exam: Present normal inspection Respiratory Respiratory exam: Present normal lung sounds bilaterally; Absent respiratory distress or wheezes Cardiovascular Cardiovascular exam: Present regular rate, normal rhythm and normal heart sounds Abdominal Exam Abdominal exam: Present soft and normal bowel sounds; Absent distention or tenderness Neurological Exam Neurological exam: Present alert, oriented X3 and normal gait Medical Decision Making Jose Inquiry Pt receiving controlled substance: No Jose was queried for this patient: No Vital Signs: 04/01/24 10:25 Temperature 99.7 F H Temperature Source Oral Pulse Rate [Left Brachial] 108 H Respiratory Rate 20 Blood Pressure [Left Arm] 123/77 Blood Pressure Mean [Left Arm] 92 Blood Pressure Source [Left Arm] Automatic Cuff Blood Pressure Position [Left Arm] Sitting 02 Sat by Pulse Oximetry 96 Oxygen Delivery Method Room Air Lab Data Lab results reviewed: Yes I reviewed the patient's lab results. Medical Decision Narrative: Patient states that she has taken zofran with her prescribed medications without complication or reactions
[2024-04-01 10:52] VITALS: BP 123/77; PULSE 108; RESP 20; TEMP 37.6; O2SAT 96
[2024-04-01 10:53] LABS: UTC Influenza A Antigen Negative (Negative); UTC Influenza B Antigen Negative (Negative)
== END 2024-04-01 10:58 | disposition home or self-care (01) ==
PROVIDERS: Emergency Provider Nurse Practitioner; PCP Family Medicine
DX: R11.0 Nausea (principal); R51.9 Headache, unspecified; R05.9 Cough, unspecified; R07.0 Pain in throat; B34.9 Viral infection, unspecified
CPT/HCPCS: 87635; 87804; 99212; 99214; G0463

== ENCOUNTER 2024-07-03 14:09 | Outpatient (CLI) | payer MEDICARE, BC, SELFPAY ==
--- NOTE | 2024-07-03 14:17 | US_ITS ---
FINAL REPORT TECHNIQUE: Sonographic images of the thyroid gland were obtained in the longitudinal and transverse planes. CLINICAL HISTORY: .f/u nodule COMPARISON: 06/25/2023 FINDINGS: The right lobe measures 4.0 x 1.7 x 1.2 cm. The right lobe is homogeneous. There are several small colloid cyst. There is a 3 mm hypoechoic nodule which was not seen on the prior exam. The left lobe measures 4.4 x 1.9 x 2.4 cm. The left lobe is homogeneous. There is a mixed cystic and solid 2.8 cm nodule which has not significantly changed in size from the prior exam. There is also a hypoechoic 6 mm nodule on the left which is wider than tall and not seen on the previous exam. The isthmus measures 3 mm. This is normal. IMPRESSION: Stable mixed cystic and solid left thyroid nodule. Please correlate with previously performed biopsy. New 6 mm TR 4 left thyroid nodule. Based on size of less than 1 cm, no current recommendation for follow-up per TI-RADS criteria. Reviewed, Interpreted and Dictated by Falguni Doe MD Transcribed by Griselda Yousif Authenticated and [facility]
== END 2024-07-03 23:59 | disposition home or self-care (01) ==
LOC: RAD 14:12
PROVIDERS: PCP Family Medicine; Visit Provider Family Medicine
DX: E04.1 Nontoxic single thyroid nodule (principal)
CPT/HCPCS: 76536

== ENCOUNTER 2025-01-15 15:14 | Outpatient (CLI) | payer MEDICARE, BC, SELFPAY ==
--- OUTSIDE RECORDS SUMMARY | 2025-01-15 15:16 | XMS_ITS | Clinical Summary ---
Author Organization [facility] Address [address] [place] [address] Care Team Providers Care International Marketing Executive Name Role Phone Cachorro Jennings MD Primary Care Provider [phone] Arely Youngblood MD Unavailable + [phone] Allergies Active Allergy Reactions Criticality Noted Date Comments Latex Other - please docum ent in the comment field,Rash Low 01/18/2022 Medications oxyCODONE-acetam inophen (Percocet) 10-325 MG tablet Take 1 tablet by mouth. 10/13/2016 Active promethazine (Phenergan) 25 MG tablet Take 25 mg by mouth. 08/14/2016 Active biotin 1000 MCG tablet 11/29/2021 Active Topiramate ER 50 MG capsule extended-release 24 hour sprinkle 08/16/2017 Ac tive Rhubarb (ESTROVEN MENOPAUSE RELIEF PO) 11/23/2021 Active Omeprazole 20 MG Tablet Delayed Release Dispersible Active mupirocin (Bactroban) 2 % ointment 12/28/2021 Active hydrOXYzine pamoate (Vistaril) 25 MG capsule TAKE 1 CAPSULE BY MOUTH TWICE A DAY NEEDED 07/27/2021 Active FLUoxetine (PROzac) 20 MG capsule 20 mg 2 (two) times a day. 09/14/2017 Active busPIRone (Buspar) 10 MG tablet 01/05/2022 Active ALPRAZolam (Xanax) 0.25 MG tablet 11/29/2021 Active hydroCHLOROthiaz jc (HYDRODiuril) 25 MG tablet Take 25 mg by mouth 1 (one) time each day in the morning. 10/29/2021 Active atorvastatin (Lipitor) 10 MG tablet Take 10 mg by mouth 1 (one) time each day. 10/21/2021 Active amLODIPine-benaz epril (Lotrel) 10-40 MG capsule Take 1 capsule by mouth 1 (one) time each day. Active traZODone (Desyrel) 100 MG tablet 08/31/2021 Active Family History Medical History Relation Name Comments Lung cancer Father Uterine cancer Father's Brother Cervical cancer Mother's Sister Relation Name Status Comments Father Father's Brother Mother's Sister Social History Tobacco Use Types Packs/Day Years Used Date Smoking Tobacco: Never Smokeless Tobacco: Never Alcohol Use Standard Drinks/Week Comments Not Currently 0 (1 standard drink = 0.6 oz pur e alcohol) Comments No Sex and Gender Information Value Date Recorded Sex Assigned at Not on file Legal Sex Female 8:33 PM EDT Gender Identity Not on file Sexual Orientation Not on file Last Filed Vital Signs Vital Sign Reading Time Taken Comments Blood Pressure 125/83 03/01/2022 9:44 AM EDT Pulse 63 03/01/2022 9:44 AM EDT Temperature - - Respiratory Rate 18 01/18/2022 3:23 PM EDT Oxygen Saturation 97% 03/01/2022 9:44 AM EDT Inhaled Oxygen Concentration - - Weight 109 kg (240 lb) 03/01/2022 9:44 AM EDT Height 172.7 cm (5' 8 ) 03/01/2022 9:44 AM EDT Body Mass Index 36.49 03/01/2022 9:44 AM EDT Plan of Treatment Health Maintenance Due Date Last Done Comments [facility]-Depression Screening 1968 [facility]-HIV Screening 1968 [facility]-Hepatitis C Screening 1968 [facility]-Medicare Annual Wellness (AWV) 1968 [facility]-Infant/Child/Adol SDOH Screenings 1968 [facility]-Obesity Intervention 01/21/1974 [facility]- SDOH Screenings 01/21/1986 [facility]-Adult SDOH Screenings 01/21/1986 [facility]-DTaP,Tdap,and Td Vaccine s (1 - Tdap) 01/21/1987 [facility]-Hepatitis B Vaccines (1 of 3 - 19+ 3-dose series) 01/21/1987 CT Colonography 01/21/2013 FIT-DNA 01/21/2013 FIT 01/21/2013 FOBT 01/21/2013 Sigmoidoscopy 01/21/2013 [facility]-Breast Cancer Screening 01/21/2018 [facility]-Pneumococcal Vaccine: 50 + Years (1 of 1 - PCV) 01/21/2018 [facility]-Zoster Vaccines (1 of 2) 01/21/2018 [id number] Vaccine (3 - season) 2024 12/09/2020, 11/08/2020 [facility]-Influenza Vaccine (Seaso n Ended) 2025 Colonoscopy 02/28/2026 02/29/2016 [facility]-Colorectal Cancer Screening 02/28/2026 HPV Vaccines Aged Out No longer eligi ble based on patient's age to complete this topic [facility]-HIB Vaccines Aged Out No longer e ligible based on patient's age to complete this topic [facility]-Hepatitis A Vaccines Aged Out No longer eligible based on patient's age to complete this topic [facility]-IPV Vaccines Aged Out No longer e ligible based on patient's age to complete this topic [facility]-Rotavirus Vaccines Aged Out No lo nger eligible based on patient's age to complete this topic Procedures Procedure Name Priority Date/Time Associated Diagnosis Comments COLONOSCOPY 02/29/2016 from Last 3 Months or Most Recently Relevant to Health Maintenance Results * COLONOSCOPY (02/29/2016) Anatomical Region Laterality Modality Endoscopy Narrative 02/29/2016 Ordered by an unspecified provider. Historical Provider GI PROCEDURE ORDERABLES F inal Result from Last 3 Months or Most Recently Relevant to Health Maintenance [place] [address] ANTHEM Care Teams International Marketing Executive Relationship Specialty Start Date End Date Cachorro Jennings MD [address] [place] [id number] PCP - General 12/23/20 Arely Youngblood MD [address] [facility] [address] [place] [id number] Service Attending Neurology 01/18/22
--- OUTSIDE RECORDS SUMMARY | 2025-01-15 15:16 | XMS_ITS | Encounter Summary ---
Author Organization [facility] Address [address] [place] [address] Care Team Providers Care School Director Name Role Phone Cachorro Jennings MD Primary Care Provider [phone] Arely Youngblood MD Unavailable + [phone] Reason for Referral * Consultation (Routine) - Closed Specialty Diagnoses / Procedures Referred By Sandro monahan Referred To Contact Neurology Diagnoses Multiple sclerosis (CMS/HCC) Dougie Funes MD [facility] [address] [place] [address] Phone: tel: fax: Referral ID Status Reason Start Date Expiration Date V isits Requested Visits Authorized [id number] Closed Specialty Services Required 12/29/2021 06/30/2023 1 1 Encounter Details Date Type Department Care Team ([facility] st Contact Info) Description 12/29/2021 Community [facility] Community Practice [address] [place] [address] Dougie Funes MD [facility] [address] [place] [address] Multiple sclerosis (CMS/HCC) (Primary Dx) Social History Tobacco Use Types Packs/Day Years Used Date Smoking Tobacco: Never Comments Unknown Sex and Gender Information Value Date Recorded Sex Assigned at Not on file Legal Sex Female 8:33 PM EDT Gender Identity Not on file Sexual Orientation Not on file documented as of this encounter Plan of Treatment Scheduled Referrals Name Type Priority Associated Diagnoses Order Schedule Ambulatory referral to Neurology Outpatient Referral Routine Multiple sclerosis (CMS/HCC) Expected: 12/29/2021 (Approximate), Expires: 07/01/2023 documented as of this encounter Visit Diagnoses Diagnosis Multiple sclerosis (CMS/HCC)- Primary Multiple sclerosis documented in this encounter Care Teams School Director Relationship Specialty Start Date End Date Cachoror Jennings MD [address] [facility] [place] [address] PCP - General 12/23/20 Arely Youngblood MD [address] [facility] [address] [place] [id number] Service Attending Neurology 01/18/22 documented as of this encounter
--- NOTE | 2025-01-15 15:17 | MM_ITS ---
PROCEDURE INFORMATION: Exam: MG Bilateral Screening 3D Mammography Exam date and time: 01/15/2025 3:25 PM Age: 54 years old Clinical indication: Screening examination TECHNIQUE: Imaging protocol: Bilateral Screening tomosynthesis and 2D mammography including computer-aided detection (CAD) when performed. COMPARISON: 1. MG MM DIG SCREENING MAMM BI W/CAD 12/30/2023 4:57 PM 2. MG MM CLIP PLACEMENT LT 12/19/2021 10:42 AM FINDINGS: MAMMOGRAPHY: Breast composition: There are scattered areas of fibroglandular density. Mass: None. Architectural distortion: None. Calcifications: No suspicious calcifications. Asymmetric density: None. Skin thickening: None. Axillary adenopathy: None. IMPRESSION: No mammographic evidence of malignancy. Annual screening is recommended unless otherwise clinically indicated. ASSESSMENT: BI-RADS Category 1: Negative.
== END 2025-01-15 23:59 | disposition home or self-care (01) ==
LOC: RAD 15:15
PROVIDERS: PCP Family Medicine; Visit Provider Obstetrics & Gynecology Gynecology
DX: Z12.31 Encounter for screening mammogram for malignant neoplasm of breast (principal); R92.323 Mammographic fibroglandular density, bilateral breasts
CPT/HCPCS: 77063; 77067

== ENCOUNTER 2025-07-05 14:18 | Outpatient (CLI) | payer MEDICARE, BC, SELFPAY ==
--- OUTSIDE RECORDS SUMMARY | 2025-06-25 09:00 | XMS_ITS | Encounter Summary ---
Author Organization [facility] Address [address] [place] [address] Care Team Providers Care Chief Physical Therapist Name Role Phone Cachorro Jennings MD Primary Care Provider + Reason for Referral * Diagnostic Imaging (Routine) - Authorized Specialty Diagnoses / Procedures Referred By Contac t Referred To Contact Diagnoses Nontoxic single thyroid nodule Procedures US Thyroid Cachorro Jennings MD [address] [facility] [address] Phone: tel: fax: [facility] [address] [place] [address] [place] [address] Phone: tel: fax: Referral ID Status Reason Start Date Expiration Date V isits Requested Visits Authorized [id number] Authorized 06/25/2025 09/24/2026 1 1 Reason for Visit * Reason Comments Follow-up Hypertension chronic pain Hyperlipidemia Encounter Details Date Type Department Care Team (Late st Contact Info) Description 06/25/2025 9:00 AM EST Office Visit [facility] [address] [facility] [place] [phone] Cachorro Jennings MD [address] [place] [address] Primary hypertension (Primary Dx); Mixed hyperlipidemia; Mesenteric panniculitis; Nontoxic single thyroid nodule; Multiple sclerosis; Other chronic pain; Encounter for long-term use of opiate analgesic Social History Tobacco Use Types Packs/Day Years Used Date Smoking Tobacco: Never Smokeless Tobacco: Never Tobacco Cessation:Counseling Given: Not Answered Alcohol Use Standard Drinks/Week Comments Not Currently 2 (1 standard drink = 0.6 oz pur e alcohol) 2-3 a day or 3-5 per week PHQ-2 Answer Date Recorded Retired PHQ-9: Brief Depression Severity Measure Score 1 06/14/2023 PHQ-2 Answer Date Recorded Patient Health Questionnaire-2 Score 1 12/18/2024 Comments No Sex and Gender Information Value Date Recorded Sex Assigned at Female 12/17/2024 12:09 PM EDT Legal Sex Female 10:39 AM EDT Gender Identity Not on file Sexual Orientation Not on file documented as of this encounter Last Filed Vital Signs Vital Sign Reading Time Taken Comments Blood Pressure 118/68 06/25/2025 8:56 AM EST Pulse 80 06/25/2025 8:56 AM EST Temperature 36.6 C (97.8 F) 06/25/2025 8:56 AM EST Respiratory Rate 20 06/25/2025 8:56 AM EST Oxygen Saturation 100% 06/25/2025 8:56 AM EST Inhaled Oxygen Concentration - - Weight 110 kg (242 lb 3.2 oz) 06/25/2025 8:56 AM EST Height 172.7 cm (5' 7.99 ) 06/25/2025 8:56 AM ES T Body Mass Index 36.84 06/25/2025 8:56 AM EST documented in this encounter Progress Notes * Cachorro Jennings MD - 06/25/2025 9:00 AM EST Chief Complaint Patient presents with Follow-up Hypertension chronic pain Hyperlipidemia Subjective Jalyn Lindsey is a 55 y.o. who presents for chronic care hypertension, hypercholesterolemia, chronic pain, MS. Over the last 6 months patient reports increased stress in her life due to declining health of her mother. One of the way she is coping with the stress is through eating which has resulted in weight gain since her last visit. Patient was aware of her weight gain. Otherwise she denies changes in health. She is not monitoring blood pressure regularly but takes her medicine as prescribed. She is taking her atorvastatin 10 mg daily. Despite the increased stress caused by her mother's declining health this did not affect her MS which was a possibility in the past. Regarding her chronic pain she continues to try to wean from the use of oxycodone and 90 tablets are lasting approximately 40 days. The following portions of the patient's history were reviewed and updated as appropriate: allergies, current medications, past family history, past medical history, past social history, past surgicalhistory, and problem list. Review of Systems Objective Vital Signs: BP 118/68 Pulse 80 Temp 97.8 ??F (36.6 ??C) Resp 20 Ht 172.7 cm (67.99 ) Wt 110 kg (242 lb 3.2 oz) SpO2 100% BMI 36.84 kg/m?? Physical Exam Constitutional: Appearance: Normal appearance. HENT: Head: Normocephalic and atraumatic. Right Ear: Tympanic membrane and ear canal normal. Left Ear: Tympanic membrane and ear canal normal. Nose: Nose normal. Mouth/Throat: Mouth: Mucous membranes are moist. Pharynx: Oropharynx is clear. Eyes: Conjunctiva/sclera: Conjunctivae normal. Cardiovascular: Rate and Rhythm: Normal rate and regular rhythm. Heart sounds: Normal heart sounds. No murmur heard. Pulmonary: Effort: Pulmonary effort is normal. No respiratory distress. Breath sounds: Normal breath sounds. Musculoskeletal: Cervical back: Normal range of motion and neck supple. No tenderness. Lymphadenopathy: Cervical: No cervical adenopathy. Skin: General: Skin is warm and dry. Neurological: Mental Status: She is alert. Psychiatric: Mood and Affect: Mood normal. Result Review Assessment and Plan Diagnoses and all orders for this visit: 1. Primary hypertension (Primary) - CBC (No Diff) - Lipid Panel - Comprehensive Metabolic Panel 2. Mixed hyperlipidemia - Lipid Panel 3. Mesenteric panniculitis 4. Nontoxic single thyroid nodule Overview: 04/2022--Evaluated by Dr. Ginette Hernandez. Workup including US FNA and Afirma testing revealed benign lesion( 4% risk of malignancy) Orders: - US Thyroid; Future - TSH Rfx On Abnormal To Free T4 5. Multiple sclerosis 6. Other chronic pain - Drug Analysis,Comp,Oral Fluid - Saliva,; Future 7. Encounter for long-term use of opiate analgesic - Drug Analysis,Comp,Oral Fluid - Saliva,; Future Other orders - Fluzone >6mos ([id number]) Plan 1. Blood pressure is well-controlled. Continue Lotrel and HCTZ. Reassess every 6 months. Surveillance labs today 2. Hyperlipidemia should be well-controlled although dietary choices that have led to weight gain may also affect cholesterol testing. Continue atorvastatin. Surveillance lipid today 3. Patient's chronic pain is well-controlled and patient continues to try to reduce use of the opiate-based pain medicine for mesenteric panniculitis. Drug compliance testing performed today. Anticipate presence of amphetamines and benzos prescribed by her psychiatric nurse practitioner 4. Patient has a thyroid nodule that requires monitoring and ultrasound has been ordered. 5. MS is stable. Follow Up Return in about 26 weeks (around 12/24/2025) for Medicare Wellness. Patient was given instructions and counseling regarding her condition or for health maintenance advice. Please see specific information pulled into the AVS if appropriate. documented in this encounter Plan of Treatment Upcoming Encounters Date Type Department Care Team (Late st Contact Info) Description 12/27/2025 8:30 AM EDT Office Visit [facility] [address] [place] [phone] Cachorro Jennings MD [address] [place] [address] [place] [address] Scheduled Orders Name Type Priority Associated Diagnoses Orde r Schedule US Thyroid Imaging Routine Nontoxic single thyroid nodule Expected: 06/26/2025, Expires: 09/25/2026 Drug Analysis,Comp,Oral Fluid - Saliva, Lab Routine Other chronic pain Encounter for long-term use of opiate analgesic Expected: 06/25/2025 (Approximate), Expires: 09/25/2026 Scheduled Procedures Name Priority Associated Diagnoses Date/Ti me LEFT HEART CATH w/cors Angina pectoris documented as of this encounter Procedures Procedure Name Priority Date/Time Associated Diagnosis Comments TSH RFX ON ABNORMAL TO FREE T4 Routine 06/25/2025 9:43 AM EST Nontoxic single thyroid nodule CONV T4F Routine 06/25/2025 9:43 AM EST CBC (NO DIFF) Routine 06/25/2025 9:43 AM EST Primary hypertension LIPID PANEL Routine 06/25/2025 9:43 AM EST Mixed hyperlipidemia Primary hypertension COMPREHENSIVE METABOLIC PANEL Routine 06/25/2025 9:43 AM EST Primary hypertension documented in this encounter Results * T4F (06/25/2025 9:43 AM EST) Free T4 1.26 0.93 - 1.70 ng/dL [facility] Comment:Results may be false ly increased if patient taking Biotin. 06/25/2025 9:43 AM EST 06/25/2025 Narrative [facility] [place] (AMBULATORY) - 06/26/2025 3:07 AM EST Performed at: [address] [place] [address] [id number] Cake Batter Mixer: Dawson Haynes MD, Phone: [phone] Patient Fasting: Y Cachorro Jennings MD LAB BLOOD ORDERABLES Fin al Result [facility] [place] (AMBULATORY) [address] [place] [address], [facility] [address] [place] [address], [place] [phone] * (ABNORMAL) TSH Rfx On Abnormal To Free T4 (06/25/2025 9:43 AM EST) TSH 0.213(L) 0.270 - 4.200 uIU/mL [facility] Blood 06/25/2025 9:43 AM EST 06/25/2025 Narrative [facility] [place] (AMB[facility]) - 06/26/2025 3:07 AM EST Performed at: [address] [place] [address] [id number] Cake Batter Mixer: Dawson Haynes MD, Phone: [phone] Patient Fasting: Y us Cachorro Jennings MD LAB BLOOD ORDERABLES Fin al Result [facility] ([facility]) [address] [place] [address], [place] [phone] [facility] [address] [place] [address], [place] [phone] * (ABNORMAL) Comprehensive Metabolic Panel (06/25/2025 9:43 AM EST) [facility] Glucose 105(H) 65 - 99 mg/dL [facility] BUN 21.0(H) 6.0 - 20.0 mg/dL [facility] Creatinine 1.00 0.57 - 1.00 mg/dL [facility] EGFR Result 65.8 >60.0 mL/min/1.7 3 [facility] Comment: GFR Categories in Chronic Kidney Disease (CKD) GFR Category GFR (mL/min/1.73) Interpretation G1 90 or greater Normal or high (1) G2 60-89 Mild decrease (1) G3a 45-59 Mild to moderate decrease G3b 30-44 Moderate to severe decrease G4 15-29 Severe decrease G5 14 or less Kidney failure (1)In the absence of evidence of kidney disease, neither GFR category G1 or G2 fulfill the criteria for CKD. eGFR calculation 2020 CKD-EPI creatinine equation, which does not include race as a factor BUN/Creatinine Ratio 21.0 7.0 - 25.0 [facility] Sodium 141 136 - 145 mmol/L [facility] Potassium 3.7 3.5 - 5.2 mmol/L [facility] Chloride 98 98 - 107 mmol/L [facility] Total CO2 26.0 22.0 - 29.0 mmol/L [facility] Calcium 9.7 8.6 - 10.5 mg/dL [facility] Total Protein 7.9 6.0 - 8.5 g/dL [facility] Albumin 4.5 3.5 - 5.2 g/dL [facility] Globulin 3.4 gm/dL [facility] A/G Ratio 1.3 g/dL [facility] Total Bilirubin 0.5 0.0 - 1.2 mg/dL [facility] Alkaline Phosphatase 115 39 - 117 U/L [facility] AST (SGOT) 17 1 - 32 U/L [facility] ALT (SGPT) 15 1 - 33 U/L [facility] Blood 06/25/2025 9:43 AM EST 06/25/2025 Narrative [facility] (AMB[facility]ATORY) - 06/26/2025 3:07 AM EST Performed at: [address] [place] [address] [id number] Cake Batter Mixer: Dawson Haynes MD, Phone: [phone] Patient Fasting: Y us Cachorro Jennings MD LAB BLOOD ORDERABLES Fin al Result [facility] (AMBULATORY) [address] [place] [address], [place] [phone] [facility] [address] [place] [address], [place] [phone] * (ABNORMAL) Lipid Panel (06/25/2025 9:43 AM EST) Pathologist [facility] Total Cholesterol 191 0 - 200 mg/dL [facility] Comment: Cholesterol Reference Ranges (U.S. Department of Health and Human Services ATP III Classifications) Desirable <200 mg/dL Borderline High 200-239 mg/dL High Risk >240 mg/dL Triglyceride Reference Ranges (U.S. Department of Health and Human Services ATP III Classifications) Normal <150 mg/dL Borderline High 150-199 mg/dL High 200-499 mg/dL Very High >500 mg/dL HDL Reference Ranges (U.S. Department of Health and Human Services ATP III Classifications) Low <40 mg/dl (major risk factor for CHD) High >60 mg/dl ('negative' risk factor for CHD) LDL Reference Ranges (U.S. Department of Health and Human Services ATP III Classifications) Optimal <100 mg/dL Near Optimal 100-129 mg/dL Borderline High 130-159 mg/dL High 160-189 mg/dL Very High >189 mg/dL LDL is calculated using the NIH LDL-C calculation. Triglycerides 63 0 - 150 mg/dL [facility] HDL Cholesterol 83(H) 40 - 60 mg/dL [facility] VLDL Cholesterol Baudilio 12 5 - 40 mg/dL [facility] LDL Chol Calc (NIH) 96 0 - 100 mg/dL [facility] Blood 06/25/2025 9:43 AM EST 06/25/2025 Narrative [facility] ([facility]) - 06/26/2025 3:07 AM EST Performed at: [address] [place] [address] [address] [place], [place] [id number] Cake Batter Mixer: Dawson Haynes MD, Phone: [phone] Patient Fasting: Y Cachorro Jennings MD LAB BLOOD ORDERABLES Fin al Result [facility] ([facility]) [address] [place] [id number], [facility] [address] [place] [address], [place] [phone] * CBC (No Diff) (06/25/2025 9:43 AM EST) [facility] WBC 6.84 3.40 - 10.80 10*3/mm3 [facility] RBC 4.36 3.77 - 5.28 10*6/mm3 [facility] Hemoglobin 13.6 12.0 - 15.9 g/dL [facility] Hematocrit 40.6 34.0 - 46.6 % [facility] MCV 93.1 79.0 - 97.0 fL [facility] MCH 31.2 26.6 - 33.0 pg [facility] MCHC 33.5 31.5 - 35.7 g/dL [facility] RDW 13.5 12.3 - 15.4 % [facility] Platelets 363 140 - 450 10*3/mm3 [facility] Blood 06/25/2025 9:43 AM EST 06/25/2025 Narrative [facility] ([facility]) - 06/26/2025 3:07 AM EST Performed at: [address] [place] [address] [address] [place], [place] [id number] Cake Batter Mixer: Dawson Haynes MD, Phone: [phone] Patient Fasting: Y us Cachorro Jennings MD LAB BLOOD ORDERABLES Fin al Result [facility] ([facility]) [address] [place] [address], [place] [phone] [facility] [address] [place] [address], [place] [phone] documented in this encounter Visit Diagnoses Diagnosis Primary hypertension- Primary Unspecified essential hypertension Mixed hyperlipidemia Mesenteric panniculitis Sclerosing mesenteritis Nontoxic single thyroid nodule Nontoxic uninodular goiter Multiple sclerosis Other chronic pain Encounter for long-term use of opiate analgesic Encounter for long-term (current) use of other medications documented in this encounter Additional Health Concerns Assessment Noted Time PHQ-2 Depression Total Score: 1 12/16/19 24 9:26 AM EDT documented as of this encounter Care Teams Chief Physical Therapist Relationship Specialty Start Date End Date Cachorro Jennings MD PCP - General Family Medicine 05/07/18 documented as of this encounter
--- NOTE | 2025-07-05 14:20 | US_ITS ---
FINAL REPORT TECHNIQUE: Sonographic images of the thyroid gland were obtained in the longitudinal and transverse planes. CLINICAL HISTORY: NONTOXIC SINGLE THYROID NODULE COMPARISON: None FINDINGS: The right lobe measures 1.5 x 4.3 x 1.5 cm. There are several tiny hypoechoic nodules, likely colloid cysts. The left lobe measures 4.6 x 1.9 x 2.3 cm. There is a mixed cystic and solid 28 mm TR 3 nodule. No additional nodules seen. The isthmus measures 5 mm. This is normal. IMPRESSION: 28 mm TR 3 left thyroid nodule. FNA recommended per TI-RADS criteria. Reviewed, Interpreted and Dictated by Falguni Doe MD Transcribed by Griselda Yousif Authenticated and [facility]
--- OUTSIDE RECORDS SUMMARY | 2025-07-05 14:27 | XMS_ITS | Encounter Summary ---
Author Organization [facility] Address [address] [place] [address] Care Team Providers Care Systems Lead Name Role Phone Cachorro Jennings MD Primary Care Provider [phone] Arely Youngblood MD Unavailable [phone] Reason for Referral * Consultation (Routine) - Closed Specialty Diagnoses / Procedures Referred By Contalicia monahan Referred To Contact Neurology Diagnoses Multiple sclerosis Dougie Funes MD [address] [place] [address] Phone: tel: fax: Referral ID Status Reason Start Date Expiration Date V isits Requested Visits Authorized [id number] Closed Specialty Services Required 12/29/2021 06/30/2023 1 1 Encounter Details Date Type Department Care Team (Late st Contact Info) Description 12/29/2021 Community [facility] Community Practice [address] [place] [address] Dougie Funes MD [address] [place] [address] Multiple sclerosis (CMS/HCC) (Primary Dx) [...] to Neurology Outpatient Referral Routine Multiple sclerosis ([facility]) Expected: 12/29/2021 (Approximate), Expires: 07/01/2023 documented as of this encounter Visit Diagnoses Diagnosis Multiple sclerosis- Primary documented in this encounter Care Teams Systems Lead Relationship Specialty Start Date End Date Cachorro Jennings MD [address] [place] [address] PCP - General 12/23/20 Arely Youngblood MD [address] [facility] [address] [place] [address] Service Attending Neurology 01/18/22 documented as of this encounter
--- OUTSIDE RECORDS SUMMARY | 2025-07-05 14:27 | XMS_ITS | Encounter Summary ---
Author Organization [facility] Address [address] [id number] Care Team Providers Care Industrial Relations Commissioner Name Role Phone Cachorro Jennings MD Primary Care Provider + Reason for Visit * Reason Comments Med Refill Encounter Details Date Type Department Care Team (Late st Contact Info) Description 06/20/2025 Refill [facility] [address] [facility] [place] [address] Cachorro Jennings MD [address] [facility] [place] [address] Essential hypertension Social History Tobacco Use Types Packs/Day Years Used Date Smoking Tobacco: Never Smokeless Tobacco: Never Alcohol Use Standard Drinks/Week Comments Yes 2 (1 standard drink = 0.6 oz [...] as of this encounter Plan of Treatment Upcoming Encounters Date Type Department Care Team (Late st Contact Info) Description 12/27/2025 8:30 AM EDT Office Visit [facility] [address] [facility] [place] [address] Cachorro Jennings MD [address] [place], [place] [phone] Scheduled Procedures Name Priority Associated Diagnoses Date/Ti me LEFT HEART CATH w/cors Angina pectoris documented as of this encounter Visit Diagnoses Diagnosis Essential hypertension Unspecified essential hypertension documented in this encounter Additional Health Concerns Assessment Noted Time PHQ-2 Depression Total Score: 1 12/16/19 24 9:26 AM EDT documented as of this encounter Care Teams Industrial Relations Commissioner Relationship Specialty Start Date End Date Cachorro Jennings MD PCP - General Family Medicine 05/07/18 documented as of this encounter
--- OUTSIDE RECORDS SUMMARY | 2025-07-05 14:27 | XMS_ITS | Clinical Summary ---
Author Organization [facility] Address [address] [place] [address] Care Team Providers Care Line Servicer Name Role Phone Cachorro Jennings MD Primary Care Provider [phone] Arely Youngblood MD Unavailable + [phone] Allergies Active Allergy Reactions Criticality Noted Date [...] Date Last Done Comments [facility]-Depression Screening 1970 [facility]-Infant/Child/Adol SDOH Screenings 1970 [facility]- SDOH Screenings 01/21/1986 [facility]-Adult SDOH Screenings 01/21/1986 [facility]-DTaP,Tdap,and Td Vaccine s (1 - Tdap) 01/21/1987 [facility]-Hepatitis B Vaccines (1 of 3 - 19+ 3-dose series) 01/21/1987 CT Colonography 01/21/2013 FIT-DNA 01/21/2013 FIT 01/21/2013 FOBT 01/21/2013 Sigmoidoscopy 01/21/2013 [facility]-Pap Smear 06/10/2016 06/10/2013 [facility]-Pneumococcal Vaccine: 50 + Years (1 of 1 - PCV) 01/21/2018 [facility]-Zoster Vaccines (1 of 2) 01/21/2018 [facility]-Cervical Cancer Screening 06/10/2018 [facility]-HPV/Cotest 06/10/2018 06/10/2013 CXW-SUCBB-21 Vaccine (3 - season) 2025 12/09/2020, 11/08/2020 [facility]-Influenza Vaccine (#1) 2025 Colonoscopy 02/28/2026 02/29/2016 [facility]-Colorectal Cancer Screening [...] Priority Date/Time Associated Diagnosis Comments COLONOSCOPY 02/29/2016 CYTO DATA CONVERSION Routine 06/10/2013 12:00 AM EDT from Last 3 Months or Most Recently Relevant to Health Maintenance Results * COLONOSCOPY (02/29/2016) Anatomical Region Laterality Modality Endoscopy Narrative 02/29/2016 Ordered by an unspecified provider. us Historical Provider GI PROCEDURE ORDERABLES Mita l Result * Cytology (06/10/2013 12:00 AM EDT) Cerebrospinal fluid specimen (specimen) 06/10/2013 06/10/2013 10:25 AM EDT Narrative SUNQUEST - 06/12/2013 3:14 PM EDT [facility] MR #: [id number] [facility] [address], [place] [address] 1970 (Age: 43) FW Collect Date: 06/10/2013 00:00 Receipt Date: 06/10/2013 10:25 Page 1 DEPARTMENT OF PATHOLOGY AND LABORATORY MEDICINE CYTOPATHOLOGY REPORT Email: [email or web address] [phone] ATTENDING MD/Practitioner: Renita Mckeon M.D. Service: XRY Location: 3IR Reported: 06/12/2013 15:14 Collected: 06/10/2013 00:00 DIAGNOSIS A. CEREBROSPINAL FLUID: NO EVIDENCE OF MALIGNANCY. RARE MONONUCLEAR CELLS. Electronically Signed Out GISSELL Sesay (ASCP) Иван Garcia MD PROCEDURES/ADDENDA GROSS DESCRIPTION: 2 ml's clear fluid. CLINICAL INFORMATION: CLINICAL DIAGNOSIS Possible MS SPECIMEN DESCRIPTION: A: CEREBROSPINAL FLUID CYTOSPIN ICD: 349.9 CENTRAL NERVOUS SYSTEM DISORDER NOS F: [id number] EXVA/MARIELENA SNOMED CODES: A; [id number] A resident has participated in this service. A pathologist has performed and is responsible for the reported pathologic evaluation. Historical Provider LAB PATHOLOGY ORDERABLES Fin al Result SUNQUEST from Last 3 Months or Most Recently Relevant to Health Maintenance Insurance [facility] Care Teams Line Servicer Relationship Specialty Start Date End Date Cachorro Jennings MD [address] [place] [address] PCP - General 12/23/20 Arely Youngblood MD [address] [facility] [address] [place] [address] Service Attending Neurology 01/18/22
--- OUTSIDE RECORDS SUMMARY | 2025-07-05 14:27 | XMS_ITS | Encounter Summary ---
Author Organization [facility] Address [address] [place] [id number] Care Team Providers Care Rn Long Term Care Name Role Phone Cachorro Jennings MD Primary Care Provider + Encounter Details Date Type Department Care Team (Latest Contact Info) Description 06/25/2025 Travel Social History Tobacco Use Types Packs/Day Years [...] Description 12/27/2025 8:30 AM EDT Office Visit [facility] [address] [facility] [place] [address] Cachorro Jennings MD [address] [place] [address] Scheduled Procedures Name Priority Associated Diagnoses Date/Ti me LEFT HEART CATH w/cors Angina pectoris documented as of this encounter Visit Diagnoses Not on filedocumented in this encounter Additional Health Concerns Assessment Noted Time PHQ-2 Depression Total Score: 1 12/16/19 24 9:26 AM EDT documented as of this encounter Care Teams Rn Long Term Care Relationship Specialty Start Date End Date Cachorro Jennings MD PCP - General Family Medicine 05/07/18 documented as of this encounter
--- OUTSIDE RECORDS SUMMARY | 2025-07-05 14:27 | XMS_ITS | Encounter Summary ---
Author Organization [facility] Address [address] [place] [address] Care Team Providers Care Diesel Technician Name Role Phone Cachorro Jennings MD Primary Care Provider + Reason for Visit * Reason Onset Date Comments Med Refill 06/22/2025 Encounter Details Date Type Department Care Team (Late st Contact Info) Description 06/22/2025 Refill [facility] MEDICINE [address] [place] [address] Cachorro Jennings MD [address] [place] [address] Mesenteric panniculitis; Other chronic pain Social History Tobacco Use Types Packs/Day Years [...] Description 12/27/2025 8:30 AM EDT Office Visit [facility] MEDICINE [address] [facility] [place] [address] Cachorro Jennings MD 210 [facility] [place] [address] Scheduled Procedures Name Priority Associated Diagnoses Date/Ti me LEFT HEART CATH w/cors Angina pectoris documented as of this encounter Visit Diagnoses Diagnosis Mesenteric panniculitis Sclerosing mesenteritis Other chronic pain documented in this encounter Additional Health Concerns Assessment Noted Time PHQ-2 Depression Total Score: 1 12/16/19 24 9:26 AM EDT documented as of this encounter Care Teams Diesel Technician Relationship Specialty Start Date End Date Cachorro Jennings MD PCP - General Family Medicine 05/07/18 documented as of this encounter
--- OUTSIDE RECORDS SUMMARY | 2025-07-05 14:27 | XMS_ITS | Encounter Summary ---
Author Organization [facility] Address [address] [place] [id number] Care Team Providers Care Powder Truck Driver Name Role Phone Cachorro Jennings MD Primary Care Provider + Encounter Details Date Type Department Care Team (Late st Contact Info) Description 12/20/2024 Results Follow-Up [facility] MEDICINE [address] [facility] [place] [address] Cachorro Jennings MD [address] [facility] [place] [address] Social History Tobacco Use Types Packs/Day Years [...] Description 12/27/2025 8:30 AM EDT Office Visit [facility] MED[facility]INE [address] [facility] [place] [place] [address] Cachorro Jennings MD [address] [place] [address] Scheduled Procedures Name Priority Associated Diagnoses Date/Ti me LEFT HEART CATH w/cors Angina pectoris documented as of this encounter Visit Diagnoses Not on filedocumented in this encounter Additional Health Concerns Assessment Noted Time PHQ-2 Depression Total Score: 1 12/16/19 24 9:26 AM EDT documented as of this encounter Care Teams Powder Truck Driver Relationship Specialty Start Date End Date Cachorro Jennings MD PCP - General Family Medicine 05/07/18 documented as of this encounter
--- OUTSIDE RECORDS SUMMARY | 2025-07-05 14:27 | XMS_ITS | Encounter Summary ---
Author Organization [facility] Address [address] [place] [address] Care Team Providers Care Town Marshal Name Role Phone Cachorro Jennings MD Primary Care Provider + Reason for Visit * Reason Comments Med Refill Encounter Details Date Type Department Care Team (Late st Contact Info) Description 07/01/2025 Refill [facility] MED[facility]INE [address] [place] [address] Cachorro Jennings MD 210 [facility] [place] [address] Mixed hyperlipidemia; Essential hypertension; Gastroesophageal reflux disease without esophagitis Social History Tobacco Use Types Packs/Day Years [...] Description 12/27/2025 8:30 AM EDT Office Visit [facility] [address] [place] [address] Cachorro Jennings MD [address] [place] [address] Scheduled Procedures Name Priority Associated Diagnoses Date/Ti me LEFT HEART CATH w/cors Angina pectoris documented as of this encounter Visit Diagnoses Diagnosis Mixed hyperlipidemia Essential hypertension Unspecified essential hypertension Gastroesophageal reflux disease without esophagitis Esophageal reflux documented in this encounter Additional Health Concerns Assessment Noted Time PHQ-2 Depression Total Score: 1 12/16/19 24 9:26 AM EDT documented as of this encounter Care Teams Town Marshal Relationship Specialty Start Date End Date Cachorro Jennings MD PCP - General Family Medicine 05/07/18 documented as of this encounter
--- OUTSIDE RECORDS SUMMARY | 2025-07-05 14:27 | XMS_ITS | Clinical Summary ---
[facility] Organization [facility] Address [address] [place] [address] Care Team Providers Care Market News Reporter Name Role Phone Cachorro Jennings MD Primary Care Provider + Allergies Active Allergy Reactions Criticality Noted Date Comments Latex Other (See Comments),Rash Low 01/18/2022 Medications FLUoxetine (PROzac) 40 MG capsule Take 2 capsules by mouth Daily. Active aspirin 81 MG tablet Take 1 tablet by mouth Daily. 30 tablet 11 Active busPIRone (BUSPAR) 10 MG tablet Take 1 tablet by mouth 2 (Two) Times a Day. 11/30/19 22 Active hydrOXYzine pamoate (VISTARIL) 25 MG capsule 03/07/20 22 Active QUEtiapine (SEROquel) 50 MG tablet 06/20/20 22 Active venlafaxine XR (EFFEXOR-XR) 75 MG 24 hr capsule 06/20/20 22 Active ALPRAZolam (XANAX) 0.25 MG tabletIndications :Panic attacks Take 1 tablet by mouth 2 (Two) Times a Day As Needed for Anxiety. 10 tablet 03/08/20 23 Active prazosin (MINIPRESS) 1 MG capsule 12/01/19 25 Active ARIPiprazole (ABILIFY) 5 MG tablet Take 1 tablet by mouth Daily. 12/01/19 25 Active amLODIPine-benaze pril (LOTREL) 10-40 MG per capsuleIndication s:Essential hypertension TAKE 1 CAPSULE BY MOUTH EVERY DAY 90 capsule 06/21/20 25 Active oxyCODONE-acetami nophen (PERCOCET) 10-325 MG per tabletIndications :Mesenteric panniculitis,Othe r chronic pain Take 1 tablet by mouth Every 8 (Eight) Hours As Needed for Moderate Pain. 90 tablet 06/24/20 25 Active amphetamine-dextr oamphetamine (ADDERALL) 10 MG tablet 06/03/20 25 Active lamoTRIgine (LaMICtal) 25 MG tablet 06/03/20 25 Active atorvastatin (LIPITOR) 10 MG tabletIndications :Mixed hyperlipidemia TAKE 1 TABLET BY MOUTH EVERY DAY 90 tablet 3 07/01/20 25 Active hydroCHLOROthiazi de 25 MG tabletIndications :Essential hypertension TAKE 1 TABLET BY MOUTH EVERY DAY 90 tablet 3 07/01/20 25 Active omeprazole (priLOSEC) 20 MG capsuleIndication s:Gastroesophagea l reflux disease without esophagitis TAKE 1 CAPSULE BY MOUTH EVERY DAY 90 capsule 3 07/01/20 25 Active metoprolol tartrate (LOPRESSOR) 25 MG tablet Take 1 tablet by mouth 2 (Two) Times a Day. 60 tablet 11 05/09/20 18 025 Discontinued(* Therapy completed) Biotin 1000 MCG tablet 11/30/19 22 025 Discontinued(* Therapy completed) omeprazole (priLOSEC) 20 MG capsuleIndication s:Gastroesophagea l reflux disease without esophagitis TAKE 1 CAPSULE BY MOUTH EVERY DAY 90 capsule 3 06/18/20 24 025 Discontinued hydroCHLOROthiazi de 25 MG tabletIndications :Essential hypertension TAKE 1 TABLET BY MOUTH EVERY DAY 90 tablet 3 06/18/20 24 025 Discontinued atorvastatin (LIPITOR) 10 MG tabletIndications :Mixed hyperlipidemia TAKE 1 TABLET BY MOUTH EVERY DAY 90 tablet 3 06/18/20 24 025 Discontinued amLODIPine-benaze pril (LOTREL) 10-40 MG per capsuleIndication s:Essential hypertension Take 1 capsule by mouth Daily. 90 capsule 1 12/19/19 25 025 Discontinued oxyCODONE-acetami nophen (PERCOCET) 10-325 MG per tabletIndications :Mesenteric panniculitis,Othe r chronic pain Take 1 tablet by mouth Every 8 (Eight) Hours As Needed for Moderate Pain. 90 tablet 05/10/20 25 025 Discontinued(R eorder) Active Problems Problem Noted Date Diagnosed Date Nontoxic single thyroid nodule 07/02/2022 Overview (06/14/2023): 04/2022--Evaluated by Dr. Ginette Hernandez. Workup including US FNA and Afirma testing revealed benign lesion( 4% risk of malignancy) Class 2 severe obesity due t o excess calories with serious comorbidity and body mass index (BMI) of 37.0 to 37.9 in adult 03/15/2022 Other chronic pain 12/28/2021 Mesenteric panniculitis 12/28/2021 Hyperlipidemia 05/09/2018 Assessment & Plan (07/02/2022 2:29 PM EST): Lipid abnormalities are unchanged. Pharmacotherapy as ordered. Lipids will be reassessed in 6 months. Menopause 05/09/2018 GERD (gastroesophageal reflux disease) 8 Primary hypertension 05/08/2018 Assessment & Plan (12/18/2024 11:16 AM EDT): Orders: amLODIPine-benazepril (LOTREL) 10-40 MG per capsule; Take 1 capsule by mouth Daily. Assessment & Plan (07/02/2022 2:29 PM EST): Hypertension is improving with treatment. Continue current treatment regimen. Blood pressure will be reassessed at the next regular appointment. Assessment & Plan (12/28/2021 9:43 AM EDT): Hypertension is improving with treatment. Continue current treatment regimen. Blood pressure will be reassessed 6 months. Multiple sclerosis 05/08/2018 Assessment & Plan (07/02/2022 2:29 PM EST): Currently stable but not anticipated to improve. Anxiety 05/08/2018 Other chest pain 05/08/2018 Overview (05/14/2018): 1. MPS 05-02-18: The EKG portion of the Lexiscan Myoview is positive for ischemia No evidence of reversible ischemia seen EF 64% 2. LHC 05-14-18: Angiographically normal coronary arteries. Normal left ventricular systolic function, ejection fraction 60%. Normal hemodynamics. Encounters Date Type Department Care Team Description 07/01/2025 Refill [facility] [address] [place] [address] Cachorro Jennings MD Mixed hyperlipidemia; Essential hypertension; Gastroesophageal reflux disease without esophagitis 06/28/2025 Results Follow-Up [facility] [address] [place] [address] Cachorro Jennings MD 06/25/2025 9:00 AM EST Office Visit [facility] [address] [place] [address] Cachorro Jennings MD Primary hypertension (Primary Dx); Mixed hyperlipidemia; Mesenteric panniculitis; Nontoxic single thyroid nodule; Multiple sclerosis; Other chronic pain; Encounter for long-term use of opiate analgesic 06/25/2025 Travel 06/22/2025 Refill [facility] [address] [place] [address] Cachorro Jennings MD Mesenteric panniculitis; Other chronic pain 06/20/2025 Refill [facility] [address] [place] [address] Cachorro Jennings MD Essential hypertension 05/10/2025 Refill [facility] [address] [place] [address] Cachorro Jennings MD Mesenteric panniculitis; Other chronic pain from Last 3 Months Immunizations Immunization Administration Dates Next Due COVID-19 (MODERNA) 1st,2nd,3rd Dose Monovalent 0 12/09/2020,11/08/2020 Fluzone >6mos 06/25/2025,06/18/2024 Fluzone (or Fluarix & Flulaval for VFC) >6mos ,07/02/2022 Pneumococcal Conjugate 20-Valent (PCV20) 025 Family History Medical History Relation Name Comments Heart disease Father Blaze Jc Lung cancer Father Blaze Jc Heart disease Mother Ginny Jc Clotting disorder Other Diabetes Other Heart attack Other Hyperlipidemia Other Hypertension Other Diabetes Sister 1 Tavia Cruz No Known Problems Sister 2 Relation Name Status Comments Father Blaze Jc Mother Ginny Jc Alive Other Sister 1 Tavia Cruz Alive Sister 2 Alive Social History Tobacco Use Types Packs/Day Years [...] Mass Index 36.84 06/25/2025 8:56 AM EST Plan of Treatment Upcoming Encounters Date Type Department Care Team (Late st Contact Info) Description 12/27/2025 8:30 AM EDT Office Visit [facility] [address] [place] [address] Cachorro Jennings MD [address] [place] [address] Scheduled Procedures Name Priority Associated Diagnoses Date/Ti me LEFT HEART CATH w/cors Angina pectoris Health Maintenance Due Date Last Done Comments Annual Gynecologic Pelvic an d Breast Exam 1970 TDAP/TD VACCINES (1 - Tdap) 01/21/1987 COLOGUARD 01/21/2013 COLON CANCER SCREENING 5 YEA R SIGMOIDOSCOPY 01/21/2013 CT COLONOGRAPHY 01/21/2013 FIT Testing (1 year) 01/21/2013 ZOSTER VACCINE (1 of 2) 01/21/2018 HEPATITIS C SCREENING 05/08/2018 FECAL OCCULT BLOOD TEST 11/23/2022 11/23/2021 ANNUAL WELLNESS VISIT 12/18/2025 12/18/2024 , 12/16/2023, 12/16/2023 COLONOSCOPY 02/28/2026 02/29/2016, 02/10, 02/29/2016 COLORECTAL CANCER SCREENING 02/28/2026 LIPID PANEL 06/25/2026 06/25/2025, 02/2024, 06/14/2023, Additional history exists MAMMOGRAM 01/20/2027 01/20/2025, 01/10, 01/15/2025, Additional history exists Pneumococcal Vaccine 50+ Completed 12/18/2024 INFLUENZA VACCINE Completed 06/25/2025, , 06/14/2023, Additional history exists Procedures Procedure Name Priority Date/Time Associated Diagnosis Comments CONV T4F Routine 06/25/2025 9:43 AM EST TSH RFX ON ABNORMAL TO FREE T4 Routine 06/25/2025 9:43 AM EST Nontoxic single thyroid nodule COMPREHENSIVE METABOLIC PANEL Routine 06/25/2025 9:43 AM EST Primary hypertension LIPID PANEL Routine 06/25/2025 9:43 AM EST Mixed hyperlipidemia Primary hypertension CBC (NO DIFF) Routine 06/25/2025 9:43 AM EST Primary hypertension SCANNED - MAMMO 01/15/2025 from Last 3 Months or Most Recently Relevant to Health Maintenance Results * (ABNORMAL) TSH Rfx On Abnormal To Free T4 (06/25/2025 9:43 AM EST) [facility] TSH 0.213(L) 0.270 - 4.200 uIU/mL [facility] Blood 06/25/2025 9:43 AM EST 06/25/2025 Narrative [facility] (AMBULATORY) - 06/26/2025 3:07 AM EST Performed at: [address] [place] [address] [address] [place], [place] [id number] Book Binder: Dawson Haynes MD, Phone: [phone] Patient Fasting: Y Cachorro Jennings MD LAB BLOOD ORDERABLES Fin al Result Performing Organization Address [facility] Co de Phone Number [facility] (AMBULATORY) [address] [place] [id number], [facility] [address] [place] [address], * T4F (06/25/2025 9:43 AM EST) [facility] Free T4 1.26 0.93 - 1.70 ng/dL [facility] Comment:Results may be false ly increased if patient taking Biotin. 06/25/2025 9:43 AM EST 06/25/2025 Narrative [facility] ([facility]) - 06/26/2025 3:07 AM EST Performed at: [address] [place] [id number] Book Binder: Dawson Haynes MD, Phone: [phone] Patient Fasting: Y Cachorro Jennings MD LAB BLOOD ORDERABLES Fin al Result Performing Organization Address City/[facility] Co de Phone Number [facility] ([facility]BUL[facility]) [address] [place] [address], [facility] [address] [place] [address], * CBC (No Diff) (06/25/2025 9:43 AM EST) [facility] WBC 6.84 3.40 - 10.80 10*3/mm3 [facility] [...] 06/25/2025 9:43 AM EST 06/25/2025 Narrative [facility] (AMBULATORY) - 06/26/2025 3:07 AM EST Performed at: [address] [place] [id number] Book Binder: Dawson Haynes MD, Phone: [phone] Patient Fasting: Y us Cachorro Jennings MD LAB BLOOD ORDERABLES Fin al Result [facility] (AMBULATORY) [address] [place] [address], [facility] [address] [place] [address], * (ABNORMAL) Lipid Panel (06/25/2025 9:43 AM EST) [facility] Total Cholesterol 191 0 - 200 mg/dL [...] 06/25/2025 9:43 AM EST 06/25/2025 Narrative [facility] (AMBULATORY) - 06/26/2025 3:07 AM EST Performed at: [address] [place] [id number] Book Binder: Dawson Haynes MD, Phone: [phone] Patient Fasting: Y Cachorro Jennings MD LAB BLOOD ORDERABLES Fin al Result [facility] (AMBULATORY) [address] [place] [address], [facility] [address] [place] [address], * (ABNORMAL) Comprehensive Metabolic Panel (06/25/2025 9:43 AM EST) [facility] Glucose 105(H) 65 - 99 mg/dL [facility] [...] - 06/26/2025 3:07 AM EST Performed at: [address] [place] [id number] Book Binder: Dawson Haynes MD, Phone: [phone] Patient Fasting: Y Cachorro Jennings MD LAB BLOOD ORDERABLES Fin al Result [facility] (AMBULATORY) [address] [place] [address], [facility] [address] [place] [address], [place] [phone] * MAMMO Scan (01/15/2025) Anatomical Region Laterality Modality Other Cachorro Jennings MD CHART REVIEW TABS Fin al Result from Last 3 Months or Most Recently Relevant to Health Maintenance Insurance MEDICARE A & B Member Subscriber Plan / Payer (Ef fective 2015-Present) Name:Jalyn Lindsey Clyde Member ID:[id number] Relation to Subscriber:Self Name:Jalyn Lindsey Clyde Subscriber ID:[id number] Payer ID:[id number] Group ID:Not on file Type:Not on file Address: [facility] [id number] Care Teams Market News Reporter Relationship Specialty Start Date End Date Cachorro Jennings MD PCP - General Family Medicine 05/07/18
--- OUTSIDE RECORDS SUMMARY | 2025-07-05 14:27 | XMS_ITS | Encounter Summary ---
Author Organization [facility] Address [address] [place] [address] Care Team Providers Care Loom Fixer Helper Name Role Phone Cachorro Jennings MD Primary Care Provider + Reason for Visit * Reason Onset Date Comments Med Refill 05/10/2025 Encounter Details Date Type Department Care Team (Late st Contact Info) Description 05/10/[address] [facility] MED[facility]INE [address] [place] [address] Cachorro Jennings MD [address] [place] [address] Mesenteric panniculitis; Other chronic pain [...] AM EDT Office Visit [facility] MED[facility] [address] [facility] [address] Cachorro Jennings MD [address] [facility] [place] [address] Scheduled Procedures Name Priority Associated Diagnoses Date/Ti me LEFT HEART CATH w/cors Angina pectoris documented as of this encounter Visit Diagnoses Diagnosis Mesenteric panniculitis Sclerosing mesenteritis Other chronic pain documented in this encounter Additional Health Concerns Assessment Noted Time PHQ-2 Depression Total Score: 1 12/16/19 24 9:26 AM EDT documented as of this encounter Care Teams Loom Fixer Helper Relationship Specialty Start Date End Date Cachorro Jennings MD PCP - General Family Medicine 05/07/18 documented as of this encounter
--- OUTSIDE RECORDS SUMMARY | 2025-07-05 14:27 | XMS_ITS | Encounter Summary ---
Author Organization [facility] Address [address] [place] [id number] Care Team Providers Care Inventory Specialist Manager Name Role Phone Cachorro Jennings MD Primary Care Provider + Encounter Details Date Type Department Care Team (Late st Contact Info) Description 06/28/2025 Results Follow-Up [facility] [address] [facility] [place] [address] Cachorro Jennings MD [address] [facility] [place] [address] Social History Tobacco Use Types [...] Description 12/27/2025 8:30 AM EDT Office Visit [facility] MED[facility]INE [address] [place] [address] Cachorro Jennings MD [address] [place] [address] Scheduled Procedures Name Priority Associated Diagnoses Date/Ti me LEFT HEART CATH w/cors Angina pectoris documented as of this encounter Visit Diagnoses Not on filedocumented in this encounter Additional Health Concerns Assessment Noted Time PHQ-2 Depression Total Score: 1 12/16/19 24 9:26 AM EDT documented as of this encounter Care Teams Inventory Specialist Manager Relationship Specialty Start Date End Date Cachorro Jennings MD PCP - General Family Medicine 05/07/18 documented as of this encounter
== END 2025-07-05 23:59 | disposition home or self-care (01) ==
LOC: RAD 14:19
PROVIDERS: PCP Family Medicine; Visit Provider Family Medicine
DX: E04.1 Nontoxic single thyroid nodule (principal)
CPT/HCPCS: 76536